=== PATIENT | male | born 1985 | race Hispanic/Latino ===

== ENCOUNTER 2018-12-30 08:55 | Inpatient (IN) | payer BC ==
[2018-12-30] MEDS ORDERED: ZOFRAN IV ONE (09:19)
[2018-12-30] MEDS ORDERED: ATIVAN ONE ×3 (09:19→15:08)
[2018-12-30] MEDS ORDERED: ATIVAN IV ONE (09:19)
[2018-12-30] MEDS ORDERED: MORPHINE IV ONE (09:19)
[2018-12-30 09:39] LABS: Basophils % (Auto) 0.4 % (0.0-1.8); Eosinophils # (Auto) 0.1 K/mm3 (0.0-0.4); Eosinophils % (Auto) 0.8 % (0.0-4.3); Hematocrit 40.5 % (35.5-45.6); Hemoglobin 14.3 gm/dl (11.8-15.2); Lymphocytes # (Auto) 0.6 K/mm3 (1.2-5.4); Lymphocytes % (Auto) 8.7 % (13.4-35.0); Mean Corpuscular HGB Conc 35 % (32-34); Mean Corpuscular Volume 101 fl (84-94); Monocytes # (Auto) 0.4 K/mm3 (0.0-0.8); Monocytes % (Auto) 5.6 % (0.0-7.3); Red Blood Count 4.01 M/mm3 (3.65-5.03); Red Cell Distribution Width 13.5 % (13.2-15.2)
[2018-12-30 09:45] LABS: Platelet Count 64 K/mm3 (140-440)
[2018-12-30 09:55] LABS: INR 1.27 (0.87-1.13)
[2018-12-30 09:57] LABS: BUN/Creatinine Ratio 8; Blood Urea Nitrogen 6 mg/dL (9-20); Calcium 8.8 mg/dL (8.4-10.2); Hemolysis Index 8
[2018-12-30 10:01] LABS: Albumin 4.2 g/dL (3.9-5); Bilirubin,Direct 2.5 mg/dL (0-0.2)
--- NOTE | 2018-12-30 10:13 | Cat Scan Report ---
CT HEAD WITHOUT CONTRAST: HISTORY: Trauma. TECHNIQUE: Sequential 2.5mm CT images. COMPARISON: none. FINDINGS: Cerebral Parenchyma: Within normal limits. Cerebellum: Within normal limits. Brainstem: Within normal limits. Ventricles: Normal. Sella: Normal. Extra-axial spaces: Normal. Basal Cisterns: Normal. Intracranial Hemorrhage: None. Midline Shift: None. Calvarium: Normal. There is mild soft tissue swelling in the right parietal region. Sinuses: Normal. Mastoid Air Cells: Normal. Visualized Orbits: Normal. IMPRESSION: Cranial CT scan within normal limits. Right parietal soft tissue swelling.
--- NOTE | 2018-12-30 10:15 | Cat Scan Report ---
CT FACIAL BONES WITHOUT CONTRAST: HISTORY: Trauma. TECHNIQUE: Helical CT images with sagittal and coronal CT reformations. FINDINGS: All paranasal sinuses are clear. No sinus wall fracture, fluid level or opacification. The orbital cavities are symmetric and intact. The mandible is intact. The skull base and upper cervical spine demonstrate no evidence for acute injury. IMPRESSION: Unremarkable CT of the facial bones.
--- NOTE | 2018-12-30 10:16 | Cat Scan Report ---
CT SCAN OF THE CERVICAL SPINE: HISTORY: Trauma. TECHNIQUE: Contiguous 1.25 mm axial images of the cervical spine were obtained. Sagittal and coronal reformatted images. FINDINGS: There is normal alignment of the cervical spine. The body, pedicles and posterior ligaments appear normal. No evidence of fracture or subluxation is seen. The spinal canal appears normal. The prevertebral soft tissues appear normal. IMPRESSION: Unremarkable CT of the cervical spine. No acute process is noted.
[2018-12-30] MEDS ORDERED: BENADRYL IV ONE (10:40)
[2018-12-30] MEDS ORDERED: DILAUDID IV ONE (10:40)
[2018-12-30] MEDS ORDERED: DILAUDID ONE (10:41)
[2018-12-30] MEDS ORDERED: BENADRYL ONE (10:41)
--- NOTE | 2018-12-30 11:46 | XRay Report ---
AP CHEST: HISTORY: Trauma AP view of the chest demonstrates a normal mediastinal and cardiac contour with clear lungs and normal bony and soft tissue structures. IMPRESSION: Unremarkable AP chest.
--- NOTE | 2018-12-30 11:46 | XRay Report ---
LUMBOSACRAL SPINE, 3 VIEWS: History: Trauma Findings: The vertebral bodies, disk spaces and posterior elements are intact. No compression deformity or malalignment. The SI joints are symmetric and unremarkable. Impression: 1. No evidence for acute injury to the lumbar spine.
--- NOTE | 2018-12-30 11:46 | XRay Report ---
LEFT SHOULDER: History: Trauma. Routine views demonstrate normal bony and soft tissue structures with normal joint alignment of the shoulder. IMPRESSION: Normal study.
--- NOTE | 2018-12-30 11:46 | XRay Report ---
THORACIC SPINE, 2 VIEWS: HISTORY: Trauma. Normal bone mineralization. No evidence for compression deformity, malalignment, or bone lesion. The posterior ribs are intact. The paraspinal soft tissues are within normal limits. IMPRESSION: Thoracic spine within normal limits.
[2018-12-30] MEDS ORDERED: ZOFRAN IV PRN (12:24)
[2018-12-30] MEDS ORDERED: SODIUM CHLORIDE FLUSH SYRINGE 10 ML IV PRN (12:24)
[2018-12-30] MEDS ORDERED: PROVENTIL IH PRN (12:24)
[2018-12-30] MEDS ORDERED: VITAMIN B-1 100 MG, FOLVITE 1 MG, INFUVITE 10 ML in NACL 0.9% 1000 ML 1,000 ML IV ONE (12:30)
--- NOTE | 2018-12-30 12:31 | Emergency Department Report ---
ED General Adult HPI - General Chief complaint: Multiple Trauma Stated complaint: SEIZURE/KNOT ON BACK OF HEAD Time Seen by Provider: 12/30/18 09:12 Source: patient Mode of arrival: Ambulatory Limitations: No Limitations - History of Present Illness Initial comments: This is a 30-year-old male who is brought to the emergency department via his workplace after a generalized seizure. He is able to state that he has been admitted to this facility for detox before. He has a prior diagnosis of delirium tremens. He has had alcohol withdrawal seizures in the past. I believe he also has a history of opioid habituation in the past as well. He states that he is decreased his use of alcohol recently. He arrives in the emergency department with significant tremor. He is provided IV Ativan. Patient complains of diffuse aching after his seizure. He also complained of mandibular pain. He did strike his occiput but had no prolonged loss of consciousness. He complains of discomfort in his neck and back lower back left shoulder. He is able to move all his extremities. He does not have any acute focal weakness. -: Sudden Location: head, neck, back, left, upper extremity Radiation: non-radiation Severity scale (0 -10): 4 Quality: aching Consistency: intermittent Improves with: none Worsens with: none Associated Symptoms: denies other symptoms - Related Data Previous Rx's Medication Instructions Recorded Last Taken Type Sertraline [Zoloft] 25 mg PO QDAY #30 tablet 06/27/18 Unknown Rx Thiamine [Vitamin B-1] 100 mg PO QDAY #30 tablet 06/27/18 Unknown Rx Allergies Allergy/AdvReac Type Severity Reaction Status Date / Time morphine AdvReac Vomiting Verified 12/30/18 09:18 ED Review of Systems ROS: Stated complaint: SEIZURE/KNOT ON BACK OF HEAD Other details as noted in HPI Constitutional: denies: chills, fever Eyes: denies: eye pain, eye discharge, vision change ENT: denies: ear pain, throat pain Respiratory: denies: cough, shortness of breath, wheezing Cardiovascular: denies: chest pain, palpitations Endocrine: no symptoms reported Gastrointestinal: denies: abdominal pain, nausea, diarrhea Genitourinary: denies: urgency, dysuria Musculoskeletal: as per HPI, back pain. denies: joint swelling, arthralgia Skin: denies: rash, lesions Neurological: denies: headache, weakness, paresthesias Psychiatric: anxiety, other. denies: depression Hematological/Lymphatic: denies: easy bleeding, easy bruising ED Past Medical Hx - Past Medical History Previous Medical History?: Yes Hx Congestive Heart Failure: No Hx Diabetes: No Hx Seizures: Yes Hx Asthma: No Hx COPD: No Hx HIV: No - Surgical History Past Surgical History?: Yes Additional Surgical History: Shoulder surgery - Social History Smoking Status: Unknown if ever smoked Substance Use Type: Other (opioids) - Medications Home Medications: Home Medications Medication Instructions Recorded Confirmed Last Taken Type Sertraline [Zoloft] 25 mg PO QDAY #30 tablet 06/27/18 12/30/18 Unknown Rx Thiamine [Vitamin B-1] 100 mg PO QDAY #30 tablet 06/27/18 12/30/18 Unknown Rx ED Physical Exam - General Limitations: No Limitations General appearance: in distress, other (tremulous) - Head Head exam: Present: atraumatic, normocephalic - Eye Eye exam: Present: normal appearance - ENT ENT exam: Present: mucous membranes moist, other (tongue fasciculations noted) - Neck Neck exam: Present: normal inspection, other (paravertebral no vertebral) - Respiratory Respiratory exam: Present: normal lung sounds bilaterally. Absent: respiratory distress - Cardiovascular Cardiovascular Exam: Present: regular rate, normal rhythm. Absent: systolic murmur, diastolic murmur, rubs, gallop - GI/Abdominal GI/Abdominal exam: Present: soft, normal bowel sounds. Absent: distended, tenderness, guarding, rebound, rigid - Rectal Rectal exam: Present: deferred - Extremities Exam Extremities exam: Present: normal inspection, other (tenderness to palpation of the left shoulder no gross deformity) - Back Exam Back exam: Present: normal inspection, paraspinal tenderness (somewhat diffuse upper and lower back). Absent: vertebral tenderness - Neurological Exam Neurological exam: Present: alert, oriented X3, CN II-XII intact. Absent: motor sensory deficit - Psychiatric Psychiatric exam: Present: normal affect, normal mood - Skin Skin exam: Present: warm, dry, intact, normal color. Absent: rash ED Course Vital Signs 12/30/18 12/30/18 12/30/18 09:12 09:16 09:21 Temperature 98.8 F Pulse Rate 117 H 109 H Respiratory 20 Rate Blood Pressure 126/72 Blood Pressure 123/76 [Right] O2 Sat by Pulse 93 93 95 Oximetry 12/30/18 12/30/18 12/30/18 09:25 09:30 09:32 Temperature Pulse Rate 107 H 107 H Respiratory 20 15 18 Rate Blood Pressure 127/67 Blood Pressure 127/67 [Right] O2 Sat by Pulse 91 95 Oximetry 12/30/18 12/30/18 12/30/18 09:48 10:00 10:15 Temperature Pulse Rate 107 H 89 82 Respiratory 14 15 13 Rate Blood Pressure 127/67 113/72 117/61 Blood Pressure [Right] O2 Sat by Pulse 94 92 94 Oximetry 12/30/18 12/30/18 12/30/18 10:30 10:45 11:00 Temperature Pulse Rate 88 95 H 96 H Respiratory 15 17 16 Rate Blood Pressure 122/72 132/91 122/95 Blood Pressure [Right] O2 Sat by Pulse 95 95 Oximetry 12/30/18 12/30/18 12/30/18 11:25 11:31 11:45 Temperature Pulse Rate 101 H 81 83 Respiratory 22 15 15 Rate Blood Pressure 122/95 122/95 122/95 Blood Pressure [Right] O2 Sat by Pulse 94 97 94 Oximetry 12/30/18 12/30/18 12:00 12:15 Temperature Pulse Rate 80 87 Respiratory 15 15 Rate Blood Pressure 122/95 122/95 Blood Pressure [Right] O2 Sat by Pulse 94 94 Oximetry ED Medical Decision Making - Lab Data Result diagrams: 12/30/18 09:19 12/30/18 09:19 Laboratory Results - last 24 hr 12/30/18 12/30/18 12/30/18 09:19 09:19 09:19 WBC 7.0 RBC 4.01 Hgb 14.3 Hct 40.5 MCV 101 H MCH 36 H MCHC 35 H RDW 13.5 Plt Count 64 L Lymph % (Auto) 8.7 L [place] % (Auto) 5.6 Eos % (Auto) 0.8 Baso % (Auto) 0.4 Lymph # 0.6 L [place] # 0.4 Eos # 0.1 Baso # 0.0 Seg Neutrophils % 84.5 H Seg Neutrophils # 5.9 PT 16.7 H INR 1.27 H APTT 31.0 Sodium Potassium Chloride Carbon Dioxide Anion Gap BUN Creatinine Estimated GFR BUN/Creatinine Ratio Glucose Calcium Magnesium Total Bilirubin Direct Bilirubin Indirect Bilirubin AST ALT Alkaline Phosphatase Ammonia Total Protein Albumin Albumin/Globulin Ratio Lipase Plasma/Serum Alcohol Blood Type O POSITIVE Antibody Screen Negative 12/30/18 12/30/18 12/30/18 09:19 09:19 09:19 WBC RBC Hgb Hct MCV MCH MCHC RDW Plt Count Lymph % (Auto) [place] % (Auto) Eos % (Auto) Baso % (Auto) Lymph # [place] # Eos # Baso # Seg Neutrophils % Seg Neutrophils # PT INR APTT Sodium 135 L Potassium 3.3 L Chloride 93.6 L Carbon Dioxide 24 Anion Gap 21 BUN 6 L Creatinine 0.8 Estimated GFR > 60 BUN/Creatinine Ratio 8 Glucose 118 H Calcium 8.8 Magnesium 1.40 L Total Bilirubin 4.40 H Direct Bilirubin 2.5 H Indirect Bilirubin 1.9 AST 260 H ALT 146 H Alkaline Phosphatase 113 Ammonia 105.0 H Total Protein 6.9 Albumin 4.2 Albumin/Globulin Ratio 1.6 Lipase 26 Plasma/Serum Alcohol Blood Type Antibody Screen 12/30/18 09:19 WBC RBC Hgb Hct MCV MCH MCHC RDW Plt Count Lymph % (Auto) [place] % (Auto) Eos % (Auto) Baso % (Auto) Lymph # [place] # Eos # Baso # Seg Neutrophils % Seg Neutrophils # PT INR APTT Sodium Potassium Chloride Carbon Dioxide Anion Gap BUN Creatinine Estimated GFR BUN/Creatinine Ratio Glucose Calcium Magnesium Total Bilirubin Direct Bilirubin Indirect Bilirubin AST ALT Alkaline Phosphatase Ammonia Total Protein Albumin Albumin/Globulin Ratio Lipase Plasma/Serum Alcohol < 0.01 Blood Type Antibody Screen - EKG Data -: EKG Interpreted by Mn EKG shows normal: sinus rhythm, axis, intervals, QRS complexes, ST-T waves Rate: normal - EKG Data Interpretation: no acute changes - Radiology Data Radiology results: report reviewed The entire series of x-rays and CT examinations showed nothing acute Critical Care Time: Yes Critical care time in (mins) excluding proc time.: 45 Critical care attestation.: If time is entered above; I have spent that time in minutes in the direct care of this critically ill patient, excluding procedure time. ED Disposition Clinical Impression: Hypokalemia, Hypomagnesemia, Hepatic encephalopathy Alcohol withdrawal Qualifiers: Complication of substance-induced condition: with perceptual disturbance Niraj lified Code(s): F10.232 - Alcohol dependence with withdrawal with perceptual disturbance Liver failure with hepatic coma Qualifiers: Liver failure chronicity: subacute Qualified Code(s): K72.01 - Acute and subac rahul hepatic failure with coma Disposition: DC-09 OP ADMIT IP TO THIS HOSP Is pt being admited?: Yes Does the pt Need Aspirin: Yes Condition: Stable Referrals: PRIMARY CARE, [Primary Care Provider] - 3-5 Days
[2018-12-30] MEDS ORDERED: MAGNESIUM SULFATE 2GM/50ML 2 GM/50 ML BAG IV ONE ×2 (12:34→14:48)
[2018-12-30] MEDS: ATIVAN IV PRN ×6 (12:34→22:45)
[2018-12-30] MEDS ORDERED: BABY ASPIRIN PO ONE ×2 (12:39→17:00)
[2018-12-30] MEDS: TYLENOL PO PRN ×2 (13:15→21:01)
[2018-12-30 13:55] LABS: Bilirubin,Urine NEG (Negative); Blood,Urine NEG (Negative); Color,Urine Amber (Yellow); Protein,Urine <15 mg/dL mg/dL (Negative)
[2018-12-30 14:09] LABS: Amphetamine Screen,Urine PRESUMPTIVE NEGATIVE; Benzodiazepines Screen,Urine PRESUMPTIVE NEGATIVE; Cannabinoid Screen,Urine PRESUMPTIVE NEGATIVE; Cocaine Screen,Urine PRESUMPTIVE NEGATIVE; Methadone Screen,Urine PRESUMPTIVE NEGATIVE; Opiate Screen,Urine PRESUMPTIVE NEGATIVE
--- NOTE | 2018-12-30 17:43 | History and Physical Report ---
History of Present Illness Date of admission: 12/30/18 13:23 Chief complaint: confused History of present illness: 33 YO Male with ETOH Dependence/Opioid Dependence presents to ED for evaluation. Pt is confused and unable to provide detailed history at time of exam. Pt history taken from medical record and ED staff. Staff reports that patient has decreased his use of ETOH over the past 3 days. Pt was at work today and experienced a generalized seizure. Pt also fell from a standing position and struck his head on the floor. Pt transported to ED via private vehicle. Pt seen and evaluated in ED and found to have Encephalopathy, ETOH Withdrawl complicated by Delirium, Liver Failure secondary to ETOH dependence, and Seizures. Pt admitted to medical floor and initiated on CIWA protocol. No further history obtainable. Pt is confused, lethargic and tremulous at time of exam. Pt has positive gag reflex, and is able to protect his airway. Past History Past Medical History: other (ETOH Dependence,Anxiety) Past Surgical History: No surgical history, Other (reviewed) Social history: alcohol abuse Family history: no significant family history (reviewed) Medications and Allergies Allergies Allergy/AdvReac Type Severity Reaction Status Date / Time morphine AdvReac Vomiting Verified 12/30/18 09:18 Home Medications Medication Instructions Recorded Confirmed Last Taken Type Sertraline [Zoloft] 25 mg PO QDAY #30 tablet 06/27/18 12/30/18 Unknown Rx Thiamine [Vitamin B-1] 100 mg PO QDAY #30 tablet 06/27/18 12/30/18 Unknown Rx Active Meds: Active Medications Acetaminophen (Tylenol) 650 mg PO Q4H PRN PRN Reason: Pain MILD(1-3)/Fever >100.5/PONCE Last Admin: 12/30/18 13:15 Dose: 650 mg Documented by: Albuterol (Proventil) 2.5 mg IH Q4HRT PRN PRN Reason: Shortness Of Breath Famotidine (Pepcid) 10 mg PO BID [facility] Folic Acid (Folvite) 1 mg PO QDAY [facility] Lorazepam (Ativan) 2 mg IV Q1HR PRN PRN Reason: CIWA-Ar 8-15 Last Admin: 12/30/18 16:44 Dose: 2 mg Documented by: Multivitamins (Theragran Tab) 1 each PO QDAY [facility] Ondansetron HCl (Zofran) 4 mg IV Q8H PRN PRN Reason: Nausea And Vomiting Sertraline HCl (Zoloft) 25 mg PO QDAY [facility] Sodium Chloride (Sodium Chloride Flush Syringe 10 Ml) 10 ml IV BID [facility] Sodium Chloride (Sodium Chloride Flush Syringe 10 Ml) 10 ml IV PRN PRN PRN Reason: LINE FLUSH Thiamine HCl (Vitamin B-1) 100 mg PO QDAY [facility] Review of Systems ROS unobtainable: due to mental status Exam - Constitutional Vitals: Temp Pulse Resp BP Pulse Ox 97.7 F 109 H 16 137/92 98 12/30/18 16:39 12/30/18 16:39 12/30/18 15:54 12/30/18 15:57 12/30/18 16:39 General appearance: Present: mild distress, obese, disheveled - EENT Eyes: Present: PERRL, miosis ENT: hearing intact, clear oral mucosa - Neck Neck: Present: supple, normal ROM - Respiratory Respiratory effort: normal Respiratory: bilateral: CTA - Cardiovascular Heart Sounds: Present: S1 & S2. Absent: rub, click - Extremities Extremities: pulses symmetrical, No edema Peripheral Pulses: within normal limits - Abdominal General gastrointestinal: Present: soft, non-tender, non-distended, normal bowel sounds Male genitourinary: Present: normal - Integumentary Integumentary: Present: clear, warm, dry - Musculoskeletal Musculoskeletal: gait normal, strength equal bilaterally - Psychiatric Psychiatric: appropriate mood/affect, intact judgment & insight - Neurologic Neurologic: CNII-XII intact, moves all extremities Results - Labs CBC & Chem 7: 12/30/18 09:19 12/30/18 09:19 Labs: Abnormal lab results 12/30/18 12/30/18 12/30/18 Range/Units 09:19 09:19 09:19 MCV 101 H (84-94) fl MCH 36 H (28-32) pg MCHC 35 H (32-34) % Plt Count 64 L (140-440) K/mm3 Lymph % (Auto) 8.7 L (13.4-35.0) % Lymph # 0.6 L (1.2-5.4) K/mm3 Seg Neutrophils % 84.5 H (40.0-70.0) % PT 16.7 H (12.2-14.9) Sec. INR 1.27 H (0.87-1.13) Sodium 135 L (137-145) mmol/L Potassium 3.3 L (3.6-5.0) mmol/L Chloride 93.6 L (98-107) mmol/L BUN 6 L (9-20) mg/dL Glucose 118 H (75-100) mg/dL Phosphorus (2.5-4.5) mg/dL Magnesium (1.7-2.3) mg/dL Total Bilirubin (0.1-1.2) mg/dL Direct Bilirubin (0-0.2) mg/dL AST (5-40) units/L ALT (7-56) units/L Ammonia (25-60) umol/L 12/30/18 12/30/18 12/30/18 Range/Units 09:19 09:19 09:19 MCV (84-94) fl MCH (28-32) pg MCHC (32-34) % Plt Count (140-440) K/mm3 Lymph % (Auto) (13.4-35.0) % Lymph # (1.2-5.4) K/mm3 Seg Neutrophils % (40.0-70.0) % PT (12.2-14.9) Sec. INR (0.87-1.13) Sodium (137-145) mmol/L Potassium (3.6-5.0) mmol/L Chloride (98-107) mmol/L BUN (9-20) mg/dL Glucose (75-100) mg/dL Phosphorus 1.60 L (2.5-4.5) mg/dL Magnesium 1.40 L 1.50 L (1.7-2.3) mg/dL Total Bilirubin 4.40 H (0.1-1.2) mg/dL Direct Bilirubin 2.5 H (0-0.2) mg/dL AST 260 H (5-40) units/L ALT 146 H (7-56) units/L Ammonia 105.0 H (25-60) umol/L Assessment and Plan - Patient Problems (1) Encephalopathy Current Visit: Yes Status: Acute Plan to address problem: CT head, neuro checks, aspiration precautions, seizure precautions, supportive care. (2) Alcohol withdrawal Current Visit: Yes Status: Acute Qualifiers: Complication of substance-induced condition: with delirium Qualified Code(s): F10.231 - Alcohol dependence with withdrawal delirium Plan to address problem: IVF resuscitation therapy, CIWA protocol, Ativan PRN, Banana bag, blood alcohol, suupportive care, antiemetic therapy (3) Liver failure with hepatic coma Current Visit: Yes Status: Acute Qualifiers: Liver failure chronicity: subacute Qualified Code(s): K72.01 - Acute and subacute hepatic failure with coma Plan to address problem: LFT, lactulose, ammonia level, repeat ammonia level in AM, CT head (4) Delirium tremens Current Visit: No Status: Acute Plan to address problem: CT Head, neuro checks, ativan prn, CIWA protocol, (5) Traumatic hematoma of forehead Current Visit: No Status: Acute Qualifiers: Encounter type: initial encounter Qualified Code(s): S00.83XA - Contusion of other part of head, initial encounter Plan to address problem: CT head, trauma panel, NSAID therapy, supportive care. (6) DVT prophylaxis Current Visit: Yes Status: Acute Plan to address problem: SCD to BLE while in bed, Hold anticoagulation at this time due to liver disease.
[2018-12-30] MEDS ORDERED: CEPHULAC PR PRN (18:06)
[2018-12-30] MEDS: PEPCID PO SCH (21:02)
[2018-12-30] MEDS: SODIUM CHLORIDE FLUSH SYRINGE 10 ML IV SCH (21:03)
[2018-12-31] MEDS: ATIVAN IV PRN ×7 (01:01→23:14)
[2018-12-31 06:49] LABS: BUN/Creatinine Ratio 10; Blood Urea Nitrogen 5 mg/dL (9-20); Calcium 8.8 mg/dL (8.4-10.2); Hemolysis Index 8
[2018-12-31] MEDS: SODIUM CHLORIDE FLUSH SYRINGE 10 ML IV SCH ×2 (09:43→22:28)
[2018-12-31] MEDS: PEPCID PO SCH ×2 (09:43→22:27)
[2018-12-31] MEDS: VITAMIN B-1 PO SCH (09:43)
[2018-12-31] MEDS: FOLVITE PO SCH (09:43)
[2018-12-31] MEDS: THERAGRAN Tab PO SCH (09:43)
--- NOTE | 2018-12-31 12:47 | Consultation ---
History of Present Illness - Reason for Consult Consult date: 12/31/18 Reason for consult: Mental Health Evaluation Requesting physician: LAUREL MANN - Chief Complaint Chief complaint: "I will get help" - History of Present Psychiatric Illness 33 y.o. white male who presented to the ER for seizure activity. Psychiatry was consulted to see the patient for ETOH. Today the patient is calm and cooperative during t he assessment. He stated that he h as a hx of alcohol abuse since he age of 14. He stated that he drink (etoh) because he enjoys it. He stated that he have been to rehab, but relapsed a year later. He stated that he was dx with depression and take Zoloft. He stated that he felt hopeless and helpless about his alcoholism, so his PCP prescribed him a antidepressant. He stated that his therapist is assisting him with locating rehab services in his local area. He stated that daily rehab services maybe hard, because he's required to work 5 days a week. He denies SI/HI's and AVH's. He denies erratic sleep and a poor appetite. He denies recreational drug use. Medications and Allergies Allergies Allergy/AdvReac Type Severity Reaction Status Date / Time morphine AdvReac Vomiting Verified 12/30/18 09:18 Home Medications Medication Instructions Recorded Confirmed Last Taken Type Sertraline [Zoloft] 25 mg PO QDAY #30 tablet 06/27/18 12/30/18 Unknown Rx Thiamine [Vitamin B-1] 100 mg PO QDAY #30 tablet 06/27/18 12/30/18 Unknown Rx Active Meds: Active Medications Acetaminophen (Tylenol) 650 mg PO Q4H PRN PRN Reason: Pain MILD(1-3)/Fever >100.5/PONCE Last Admin: 12/30/18 21:01 Dose: 650 mg Documented by: Albuterol (Proventil) 2.5 mg IH Q4HRT PRN PRN Reason: Shortness Of Breath Famotidine (Pepcid) 10 mg PO BID [facility] Last Admin: 12/31/18 09:43 Dose: 10 mg Documented by: Folic Acid (Folvite) 1 mg PO QDAY [facility] Last Admin: 12/31/18 09:43 Dose: 1 mg Documented by: Lactulose (Cephulac) 200 gm [place] ONCE PRN PRN Reason: Encephalopathy Last Admin: 12/30/18 22:46 Dose: 200 gm Documented by: Lorazepam (Ativan) 2 mg IV Q1HR PRN PRN Reason: Vel 8-15 Last Admin: 12/31/18 10:12 Dose: 2 mg Documented by: Lorazepam (Ativan) 4 mg IV Q1H PRN PRN Reason: Vel 16-25 Last Admin: 12/31/18 01:01 Dose: 4 mg Documented by: Multivitamins (Theragran Tab) 1 each PO QDAY [facility] Last Admin: 12/31/18 09:43 Dose: 1 each Documented by: Ondansetron HCl (Zofran) 4 mg IV Q8H PRN PRN Reason: Nausea And Vomiting Sertraline HCl (Zoloft) 25 mg PO QDAY [facility] Sodium Chloride (Sodium Chloride Flush Syringe 10 Ml) 10 ml IV BID [facility] Last Admin: 12/31/18 09:43 Dose: 10 ml Documented by: Sodium Chloride (Sodium Chloride Flush Syringe 10 Ml) 10 ml IV PRN PRN PRN Reason: LINE FLUSH Thiamine HCl (Vitamin B-1) 100 mg PO QDAY [facility] Last Admin: 12/31/18 09:43 Dose: 100 mg Documented by: Past psychiatric history - Past Medical History Past Medical History: No medical history Past Surgical History: No surgical history - past Psychiatric treatment and history psychiatric treatment history: Rehab services in the past for ETOH. Fam hx of alcohol abuse. - Social History Social history: lives with family Mental Status Exam - Vital signs Last Vital Signs Temp 98.4 F 12/31/18 05:53 Pulse 105 H 12/31/18 05:53 Resp 24 12/31/18 05:53 BP 142/93 12/31/18 05:53 Pulse Ox 96 12/31/18 05:53 - Exam Narrative exam: MSE: Appearance: calm, cooperative Behavior: regular eye contact Speech: regular rate and tone Mood: "okay" Affect: congruent to mood Thought Process: linear Thought Content: denies SI/HI's and AVH's Motor Activity: sitting up in bed Cognition: A/O x 3 Insight: appropriate Judgment: appropriate Results Result Diagrams: 12/30/18 09:19 12/31/18 06:01 Abnormal lab results 12/30/18 12/31/18 Range/Units 09:19 06:01 Sodium 136 L (137-145) mmol/L Potassium 3.4 L (3.6-5.0) mmol/L BUN 5 L (9-20) mg/dL Creatinine 0.5 L (0.8-1.5) mg/dL Phosphorus 1.60 L (2.5-4.5) mg/dL Magnesium 1.50 L (1.7-2.3) mg/dL All other labs normal. Assessment and Plan Assessment and plan: Impression: Alcohol Use DO. hx of Depression. Today the patient is calm and cooperative during the assessment. Recommendation/Plan: Continue Zoloft 25 mg PO daily for depression. Discussed possible suicidality/medication induced melanie with the patient reference Zoloft, he verbalized understanding. Continue CIWA. Psy sign off. Sispo: The patient can follow up with [facility] for outpatient psy/rehab services. Will staff with Dr Donita Ochoa.
[2018-12-31] MEDS: ZOLOFT PO SCH (13:47)
--- NOTE | 2018-12-31 16:47 | Progress Note ---
Assessment and Plan Assessment and plan: (1) Encephalopathy Current Visit: Yes Status: Acute Plan to address problem: CT head, neuro checks, aspiration precautions, seizure precautions, supportive care. (2) Alcohol withdrawal Current Visit: Yes Status: Acute Qualifiers: Complication of substance-induced condition: with delirium Qualified Code(s): F10.231 - Alcohol dependence with withdrawal delirium Plan to address problem: IVF resuscitation therapy, CIWA protocol, Ativan PRN, Banana bag, blood alcohol, suupportive care, antiemetic therapy (3) Liver failure with hepatic coma Current Visit: Yes Status: Acute Qualifiers: Liver failure chronicity: subacute Qualified Code(s): K72.01 - Acute and subacute hepatic failure with coma Plan to address problem: LFT, lactulose, ammonia level, repeat ammonia level in AM, CT head (4) Delirium tremens Current Visit: No Status: Acute Plan to address problem: CT Head, neuro checks, ativan prn, CIWA protocol, (5) Traumatic hematoma of forehead Current Visit: No Status: Acute Qualifiers: Encounter type: initial encounter Qualified Code(s): S00.83XA - Contusion of other part of head, initial encounter Plan to address problem: CT head, trauma panel, NSAID therapy, supportive care. (6) DVT prophylaxis Current Visit: Yes Status: Acute Plan to address problem: SCD to BLE while in bed, Hold anticoagulation at this time due to liver disease. History Interval history: Patient was seen and evaluated this morning, patient was alert and oriented. No seizure episode overnight. Patient is still tachycardic. Hospitalist Physical - Physical exam Narrative exam: Not in cardiopulmonary distress. The patient appeared well nourished and normally developed. Vital signs as documented. Head exam is unremarkable. No scleral icterus . Neck is without jugular venous distension, thyromegaly, or carotid bruits. Lungs are clear to auscultation. Cardiac exam reveals regular rate and Rhythm. Abdominal exam reveals normal bowel sounds, no masses, no organomegaly and no aortic enlargement. Extremities are nonedematous and both femoral and pedal pulses are normal. PATTERN DUPLICATOR: Alert and oriented 3. No focal weakness. - Constitutional Vitals: Temp Pulse Resp BP Pulse Ox 98.1 F 104 H 18 151/98 96 12/31/18 12:33 12/31/18 12:33 12/31/18 12:33 12/31/18 12:33 12/31/18 12:33 General appearance: Present: mild distress, obese, disheveled Results - Labs CBC & Chem 7: 12/30/18 09:19 12/31/18 06:01 Labs: Laboratory Last Values WBC 7.0 K/mm3 (4.5-11.0) 12/30/18 09: RBC 4.01 M/mm3 (3.65-5.03) 12/30/18 09:19 Hgb 14.3 gm/dl (11.8-15.2) 12/30/18 09:19 Hct 40.5 % (35.5-45.6) 12/30/18 09:19 MCV 101 fl (84-94) H 12/30/18 09:19 MCH 36 pg (28-32) H 12/30/18 09: MCHC 35 % (32-34) H 12/30/18 09:19 RDW 13.5 % (13.2-15.2) 12/30/18 09:19 Plt Count 64 K/mm3 (140-440) L 12/30/18 09:19 Lymph % (Auto) 8.7 % (13.4-35.0) L 12/30/18 09:19 [place] % (Auto) 5.6 % (0.0-7.3) 12/30/18 09:19 Eos % (Auto) 0.8 % (0.0-4.3) 12/30/18 09: Baso % (Auto) 0.4 % (0.0-1.8) 12/30/18 09:19 Lymph # 0.6 K/mm3 (1.2-5.4) L 12/30/18 09:19 [place] # 0.4 K/mm3 (0.0-0.8) 12/30/18 09:19 Eos # 0.1 K/mm3 (0.0-0.4) 12/30/18 09: Baso # 0.0 K/mm3 (0.0-0.1) 12/30/18 09:19 Seg Neutrophils % 84.5 % (40.0-70.0) H 12/30/18 09:19 Seg Neutrophils # 5.9 K/mm3 (1.8-7.7) 12/30/18 09:19 PT 16.7 Sec. (12.2-14.9) H 12/30/18 09:19 INR 1.27 (0.87-1.13) H 12/30/18 09:19 APTT 31.0 Sec. (24.2-36.6) 12/30/18 09:19 Sodium 136 mmol/L (137-145) L 12/31/18 06:01 Potassium 3.4 mmol/L (3.6-5.0) L 12/31/18 06:01 Chloride 98.6 mmol/L (98-107) 12/31/18 06:01 Carbon Dioxide 26 mmol/L (22-30) 12/31/18 06:01 15 mmol/L 12/31/18 06:01 BUN 5 mg/dL (9-20) L 12/31/18 06:01 0.5 mg/dL (0.8-1.5) L 12/31/18 06:01 Estimated GFR > 60 ml/min 12/31/18 06:01 10 % 12/31/18 06:01 Glucose 85 mg/dL (75-100) 12/31/18 06:01 Calcium 8.8 mg/dL (8.4-10.2) 12/31/18 06:01 Phosphorus 1.60 mg/dL (2.5-4.5) L 12/30/18 09:19 Magnesium 1.40 mg/dL (1.7-2.3) L 12/30/18 09:19 Magnesium 1.50 mg/dL (1.7-2.3) L 12/30/18 09:19 4.40 mg/dL (0.1-1.2) H 12/30/18 09:19 2.5 mg/dL (0-0.2) H 12/30/18 09:19 1.9 mg/dL 12/30/18 09:19 AST 260 units/L (5-40) H 12/30/18 09:19 ALT 146 units/L (7-56) H 12/30/18 09:19 113 units/L (35-129) 12/30/18 09:19 59.0 umol/L (25-60) 12/31/18 06:01 6.9 g/dL (6.3-8.2) 12/30/18 09: 4.2 g/dL (3.9-5) 12/30/18 09:19 1.6 % 12/30/18 09:19 26 units/L (13-60) 12/30/18 09:19 [place] (Yellow) 12/30/18 13:30 Clear (Clear) 12/30/18 13:30 7.0 (5.0-7.0) 12/30/18 13:30 Ur Specific [place] 1.008 (1.003-1.030) 12/30/18 13:30 <15 mg/dl mg/dL (Negative) 12/30/18 13:30 Neg mg/dL (Negative) 12/30/18 13:30 Neg mg/dL (Negative) 12/30/18 13:30 Neg (Negative) 12/30/18 13:30 Neg (Negative) 12/30/18 13:30 Neg (Negative) 12/30/18 13:30 4.0 mg/dL (<2.0) 12/30/18 13:30 Ur Leukocyte Esterase Neg (Negative) 12/30/18 13:30 6.0 /HPF (0.0-6.0) 12/30/18 13:30 1.0 /HPF (0.0-6.0) 12/30/18 13:30 Presumptive negative 12/30/18 13:30 Presumptive negative 12/30/18 13:30 Ur Barbiturates Screen Presumptive negative 12/30/18 13:30 Ur Phencyclidine Scrn Presumptive negative 12/30/18 13:30 Ur Amphetamines Screen Presumptive negative 12/30/18 13:30 U Benzodiazepines Scrn Presumptive negative 12/30/18 13:30 Presumptive negative 12/30/18 13:30 U Marijuana (THC) Screen Presumptive negative 12/30/18 13:30 Disclamer 12/30/18 13:30 Plasma/Serum Alcohol < 0.01 % (0-0.07) 12/30/18 09:19 Blood Type O POSITIVE 12/30/18 09:19 Antibody Screen Negative 12/30/18 09:19 Active Medications - Current Medications Current Medications: Generic Name Dose Route Start Last Admin Trade Name Freq PRN Reason Stop Dose Admin Acetaminophen 650 mg 12/30/18 12:24 12/30/18 21:01 Tylenol PO 650 mg Q4H PRN Administration Pain MILD(1-3)/Fever >100.5/PONCE Albuterol 2.5 mg 12/30/18 12:24 Proventil IH Q4HRT PRN Shortness Of Breath Famotidine 10 mg 12/30/18 22:00 12/31/18 09:43 Pepcid PO 10 mg BID MYNOR Administration Folic Acid 1 mg 12/31/18 10:00 12/31/18 09:43 Folvite PO 1 mg QDAY MYNOR Administration Lactulose 200 gm 12/30/18 18:06 12/30/18 22:46 Cephulac IN 200 gm ONCE PRN Administration Encephalopathy Lorazepam 2 mg 12/30/18 12:29 12/31/18 13:47 Ativan IV 2 mg Q1HR PRN Administration CIWA-Ar 8-15 Lorazepam 4 mg 12/31/18 00:33 12/31/18 01:01 Ativan IV 4 mg Q1H PRN Administration CIWA-Ar 16-25 Multivitamins 1 each 12/31/18 10:00 12/31/18 09:43 Theragran Tab PO 1 each QDAY MYNOR Administration Ondansetron HCl 4 mg 12/30/18 12:24 Zofran IV Q8H PRN Nausea And Vomiting Sertraline HCl 25 mg 12/31/18 10:00 12/31/18 13:47 Zoloft PO 25 mg QDAY MYNOR Administration Sodium Chloride 10 ml 12/30/18 22:00 12/31/18 09:43 Sodium Chloride Flush Syringe 10 Ml IV 10 ml BID MYNOR Administration Sodium Chloride 10 ml 12/30/18 12:24 Sodium Chloride Flush Syringe 10 Ml IV PRN PRN LINE FLUSH Thiamine HCl 100 mg 12/31/18 10:00 12/31/18 09:43 Vitamin B-1 PO 100 mg QDAY MYNOR Administration
[2018-12-31] MEDS ORDERED: K-DUR PO ONE (17:00)
[2018-12-31] MEDS: IBUPROFEN PO PRN (17:03)
[2019-01-01] MEDS: ATIVAN IV PRN ×4 (01:13→13:56)
[2019-01-01 09:24] LABS: Alanine Aminotransferase 109 units/L (7-56); BUN/Creatinine Ratio 14; Blood Urea Nitrogen 7 mg/dL (9-20); Calcium 8.9 mg/dL (8.4-10.2); Hemolysis Index 7
[2019-01-01] MEDS ORDERED: GEODON IM PRN ×3 (09:50→20:00)
[2019-01-01] MEDS: IBUPROFEN PO PRN ×2 (11:01→21:42)
[2019-01-01] MEDS: VITAMIN B-1 PO SCH (11:02)
[2019-01-01] MEDS: THERAGRAN Tab PO SCH (11:02)
[2019-01-01] MEDS: FOLVITE PO SCH (11:02)
[2019-01-01] MEDS: PEPCID PO SCH ×2 (11:02→21:43)
[2019-01-01] MEDS: SODIUM CHLORIDE FLUSH SYRINGE 10 ML IV SCH ×2 (11:02→21:43)
[2019-01-01] MEDS: ZOLOFT PO SCH (11:08)
--- NOTE | 2019-01-01 15:22 | Progress Note ---
Assessment and Plan Assessment and plan: (1) Encephalopathy - Patient is agitated overnight - On restraints - Continue Geodon (2) Alcohol withdrawal - Continue with CIWA protocol (3) Liver failure with hepatic coma - Improving (4) Delirium tremens - Continue CIWA protocol (5) Traumatic hematoma of forehead - CT head normal (6) DVT prophylaxis - SCDs because of the liver problems History Interval history: Patient was seen and evaluated this morning, patient was agitated overnight and he is on restraints. Patient didn't have any seizure activity. Hospitalist Physical - Physical exam Narrative exam: Not in cardiopulmonary distress. The patient appeared well nourished and normally developed. Vital signs as documented. Head exam is unremarkable. No scleral icterus . Neck is without jugular venous distension, thyromegaly, or carotid bruits. Lungs are clear to auscultation. Cardiac exam reveals regular rate and Rhythm. Abdominal exam reveals normal bowel sounds, no masses, no organomegaly and no aortic enlargement. Extremities are nonedematous and both femoral and pedal pulses are normal. MANAGER GOLF: Alert and oriented 3. No focal weakness. - Constitutional Vitals: Temp Pulse Resp BP Pulse Ox 97.9 F 122 H 20 158/110 97 01/01/19 04:37 01/01/19 04:37 01/01/19 04:37 01/01/19 04:37 01/01/19 04:37 General appearance: Present: mild distress, obese, disheveled Results - Labs CBC & Chem 7: 12/30/18 09:19 01/01/19 08:10 Labs: Laboratory Last Values WBC 7.0 K/mm3 (4.5-11.0) 12/30/18 09:19 RBC 4.01 M/mm3 (3.65-5.03) 12/30/18 09:19 Hgb 14.3 gm/dl (11.8-15.2) 12/30/18 09:19 Hct 40.5 % (35.5-45.6) 12/30/18 09:19 MCV 101 fl (84-94) H 12/30/18 09:19 MCH 36 pg (28-32) H 12/30/18 09:19 MCHC 35 % (32-34) H 12/30/18 09:19 RDW 13.5 % (13.2-15.2) 12/30/18 09:19 Plt Count 64 K/mm3 (140-440) L 12/30/18 09:19 Lymph % (Auto) 8.7 % (13.4-35.0) L 12/30/18 09:19 [place] % (Auto) 5.6 % (0.0-7.3) 12/30/18 09:19 Eos % (Auto) 0.8 % (0.0-4.3) 12/30/18 09:19 Baso % (Auto) 0.4 % (0.0-1.8) 12/30/18 09:19 Lymph # 0.6 K/mm3 (1.2-5.4) L 12/30/18 09:19 [place] # 0.4 K/mm3 (0.0-0.8) 12/30/18 09:19 Eos # 0.1 K/mm3 (0.0-0.4) 12/30/18 09: Baso # 0.0 K/mm3 (0.0-0.1) 12/30/18 09:19 Seg Neutrophils % 84.5 % (40.0-70.0) H 12/30/18 09:19 Seg Neutrophils # 5.9 K/mm3 (1.8-7.7) 12/30/18 09:19 PT 16.7 Sec. (12.2-14.9) H 12/30/18 09:19 INR 1.27 (0.87-1.13) H 12/30/18 09:19 APTT 31.0 Sec. (24.2-36.6) 12/30/18 09:19 Sodium 138 mmol/L (137-145) 01/01/19 08:10 Potassium 3.6 mmol/L (3.6-5.0) 01/01/19 08:10 Chloride 100.5 mmol/L (98-107) 01/01/19 08:10 Carbon Dioxide 21 mmol/L (22-30) L 01/01/19 08:10 20 mmol/L 01/01/19 08:10 BUN 7 mg/dL (9-20) L 01/01/19 08:10 0.5 mg/dL (0.8-1.5) L 01/01/19 08:10 Estimated GFR > 60 ml/min 01/01/19 08:10 14 % 01/01/19 08:10 Glucose 92 mg/dL (75-100) 01/01/19 08:10 Calcium 8.9 mg/dL (8.4-10.2) 01/01/19 08:10 Phosphorus 1.60 mg/dL (2.5-4.5) L 12/30/18 09:19 Magnesium 1.40 mg/dL (1.7-2.3) L 12/30/18 09:19 Magnesium 1.50 mg/dL (1.7-2.3) L 12/30/18 09:19 2.70 mg/dL (0.1-1.2) H 01/01/19 08:10 2.5 mg/dL (0-0.2) H 12/30/18 09:19 1.9 mg/dL 12/30/18 09:19 AST 177 units/L (5-40) H 01/01/19 08:10 ALT 109 units/L (7-56) H 01/01/19 08:10 111 units/L (35-129) 01/01/19 08:10 59.0 umol/L (25-60) 12/31/18 06:01 7.1 g/dL (6.3-8.2) 01/01/19 08:10 4.0 g/dL (3.9-5) 01/01/19 08:10 1.3 % 01/01/19 08:10 26 units/L (13-60) 12/30/18 09:19 [place] (Yellow) 12/30/18 13:30 Clear (Clear) 12/30/18 13:30 7.0 (5.0-7.0) 12/30/18 13:30 Ur Specific [place] 1.008 (1.003-1.030) 12/30/18 13:30 <15 mg/dl mg/dL (Negative) 12/30/18 13:30 Neg mg/dL (Negative) 12/30/18 13:30 Neg mg/dL (Negative) 12/30/18 13:30 Neg (Negative) 12/30/18 13:30 Neg (Negative) 12/30/18 13:30 Neg (Negative) 12/30/18 13:30 4.0 mg/dL (<2.0) 12/30/18 13:30 Ur Leukocyte Esterase Neg (Negative) 12/30/18 13:30 6.0 /HPF (0.0-6.0) 12/30/18 13:30 1.0 /HPF (0.0-6.0) 12/30/18 13:30 Presumptive negative 12/30/18 13:30 Presumptive negative 12/30/18 13:30 Ur Barbiturates Screen Presumptive negative 12/30/18 13:30 Ur Phencyclidine Scrn Presumptive negative 12/30/18 13:30 Ur Amphetamines Screen Presumptive negative 12/30/18 13:30 U Benzodiazepines Scrn Presumptive negative 12/30/18 13:30 Presumptive negative 12/30/18 13:30 U Marijuana (THC) Screen Presumptive negative 12/30/18 13:30 Disclamer 12/30/18 13:30 Plasma/Serum Alcohol < 0.01 % (0-0.07) 12/30/18 09:19 Blood Type O POSITIVE 12/30/18 09:19 Antibody Screen Negative 12/30/18 09:19 Active Medications - Current Medications Current Medications: Generic Name Dose Route Start Last Admin Trade Name Freq PRN Reason Stop Dose Admin Acetaminophen 650 mg 12/30/18 12:24 12/30/18 21:01 Tylenol PO 650 mg Q4H PRN Administration Pain MILD(1-3)/Fever >100.5/PONCE Albuterol 2.5 mg 12/30/18 12:24 Proventil IH Q4HRT PRN Shortness Of Breath Famotidine 10 mg 12/30/18 22:00 01/01/19 11:02 Pepcid PO 10 mg BID MYNOR Administration Folic Acid 1 mg 12/31/18 10:00 01/01/19 11:02 Folvite PO 1 mg QDAY MYNOR Administration Ibuprofen 400 mg 12/31/18 16:43 01/01/19 11:01 Motrin PO 400 mg TID PRN Administration Pain, Mild (1-3) Lactulose 200 gm 12/30/18 18:06 12/30/18 22:46 Cephulac AL 200 gm ONCE PRN Administration Encephalopathy Lorazepam 2 mg 12/30/18 12:29 01/01/19 13:56 Ativan IV 2 mg Q1HR PRN Administration CIWA-Ar 8-15 Lorazepam 4 mg 12/31/18 00:33 01/01/19 04:16 Ativan IV 4 mg Q1H PRN Administration Vel 16-25 Multivitamins 1 each 12/31/18 10:00 01/01/19 11:02 Theragran Tab PO 1 each QDAY MYNOR Administration Ondansetron HCl 4 mg 12/30/18 12:24 Zofran IV Q8H PRN Nausea And Vomiting Sertraline HCl 25 mg 12/31/18 10:00 01/01/19 11:08 Zoloft PO 25 mg QDAY MYNOR Administration Sodium Chloride 10 ml 12/30/18 22:00 01/01/19 11:02 Sodium Chloride Flush Syringe 10 Ml IV 10 ml BID MYNOR Administration Sodium Chloride 10 ml 12/30/18 12:24 01/01/19 04:17 Sodium Chloride Flush Syringe 10 Ml IV 10 ml PRN PRN Administration LINE FLUSH Thiamine HCl 100 mg 12/31/18 10:00 01/01/19 11:02 Vitamin B-1 PO 100 mg QDAY MYNOR Administration Ziprasidone 20 mg 01/01/19 09:50 01/01/19 10:20 Geodon IM 20 mg Q6HR PRN Administration Agitation
[2019-01-01] MEDS: GEODON IM PRN (21:43)
[2019-01-02 06:09] LABS: Alanine Aminotransferase 107 units/L (7-56); Albumin 3.9 g/dL (3.9-5); BUN/Creatinine Ratio 16; Blood Urea Nitrogen 8 mg/dL (9-20); Calcium 8.8 mg/dL (8.4-10.2); Hemolysis Index 8
[2019-01-02] MEDS: GEODON IM PRN ×2 (10:01→21:47)
[2019-01-02] MEDS: ZOLOFT PO SCH (10:41)
[2019-01-02] MEDS: THERAGRAN Tab PO SCH (10:41)
[2019-01-02] MEDS: PEPCID PO SCH ×2 (10:41→21:47)
[2019-01-02] MEDS: FOLVITE PO SCH (10:42)
[2019-01-02] MEDS: VITAMIN B-1 PO SCH (10:42)
[2019-01-02] MEDS: CEPHULAC PO SCH ×3 (10:43→19:16)
[2019-01-02] MEDS: NORCO 5/325 PO PRN ×2 (12:33→19:15)
[2019-01-02] MEDS: SODIUM CHLORIDE FLUSH SYRINGE 10 ML IV SCH ×2 (13:02→21:48)
--- NOTE | 2019-01-02 14:56 | Progress Note ---
Assessment and Plan Assessment and plan: (1) Hepatic Encephalopathy - Patient is agitated overnight - Patient is on lactulose - On restraints - Continue Geodon - Ammonia level is high (2) Alcohol withdrawal - Continue with CIWA protocol (3) Liver failure with hepatic coma - Improving - On lactulose - Will do hepatic U/S (4) Delirium tremens - Continue CIWA protocol (5) Traumatic hematoma of forehead - CT head normal (6) DVT prophylaxis - SCDs because of the liver problems History Interval history: Patient was seen and evaluated this morning, patient was alert and oriented. Calm and cooprative. Hospitalist Physical - Physical exam Narrative exam: Not in cardiopulmonary distress. The patient appeared well nourished and normally developed. Vital signs as documented. Head exam is unremarkable. No scleral icterus . Neck is without jugular venous distension, thyromegaly, or carotid bruits. Lungs are clear to auscultation. Cardiac exam reveals regular rate and Rhythm. Abdominal exam reveals normal bowel sounds. Extremities are nonedematous and both femoral and pedal pulses are normal. GRAIN THRESHER: Alert and oriented 3. No focal weakness. - Constitutional Vitals: Temp Pulse Resp BP Pulse Ox 98.4 F 117 H 20 159/101 97 01/02/19 12:20 01/02/19 12:20 01/02/19 12:20 01/02/19 12:20 01/02/19 12:20 General appearance: Present: mild distress, obese, disheveled Results - Labs CBC & Chem 7: 12/30/18 09:19 01/02/19 05:32 Labs: Laboratory Last Values WBC 7.0 K/mm3 (4.5-11.0) 12/30/18 09: RBC 4.01 M/mm3 (3.65-5.03) 12/30/18 09:19 Hgb 14.3 gm/dl (11.8-15.2) 12/30/18 09: Hct 40.5 % (35.5-45.6) 12/30/18 09:19 MCV 101 fl (84-94) H 12/30/18 09:19 MCH 36 pg (28-32) H 12/30/18 09:19 MCHC 35 % (32-34) H 12/30/18 09:19 RDW 13.5 % (13.2-15.2) 12/30/18 09:19 Plt Count 64 K/mm3 (140-440) L 12/30/18 09:19 Lymph % (Auto) 8.7 % (13.4-35.0) L 12/30/18 09:19 [place] % (Auto) 5.6 % (0.0-7.3) 12/30/18 09:19 Eos % (Auto) 0.8 % (0.0-4.3) 12/30/18 09:19 Baso % (Auto) 0.4 % (0.0-1.8) 12/30/18 09:19 Lymph # 0.6 K/mm3 (1.2-5.4) L 12/30/18 09:19 [place] # 0.4 K/mm3 (0.0-0.8) 12/30/18 09:19 Eos # 0.1 K/mm3 (0.0-0.4) 12/30/18 09:19 Baso # 0.0 K/mm3 (0.0-0.1) 12/30/18 09:19 Seg Neutrophils % 84.5 % (40.0-70.0) H 12/30/18 09:19 Seg Neutrophils # 5.9 K/mm3 (1.8-7.7) 12/30/18 09:19 PT 16.7 Sec. (12.2-14.9) H 12/30/18 09:19 INR 1.27 (0.87-1.13) H 12/30/18 09:19 APTT 31.0 Sec. (24.2-36.6) 12/30/18 09:19 Sodium 139 mmol/L (137-145) 01/02/19 05:32 Potassium 3.5 mmol/L (3.6-5.0) L 01/02/19 05:32 Chloride 102.4 mmol/L (98-107) 01/02/19 05:32 Carbon Dioxide 21 mmol/L (22-30) L 01/02/19 05:32 19 mmol/L 01/02/19 05:32 BUN 8 mg/dL (9-20) L 01/02/19 05:32 0.5 mg/dL (0.8-1.5) L 01/02/19 05:32 Estimated GFR > 60 ml/min 01/02/19 05:32 16 % 01/02/19 05:32 Glucose 104 mg/dL (75-100) H 01/02/19 05:32 Calcium 8.8 mg/dL (8.4-10.2) 01/02/19 05:32 Phosphorus 1.60 mg/dL (2.5-4.5) L 12/30/18 09:19 Magnesium 1.40 mg/dL (1.7-2.3) L 12/30/18 09:19 Magnesium 1.50 mg/dL (1.7-2.3) L 12/30/18 09:19 2.10 mg/dL (0.1-1.2) H 01/02/19 05:32 2.5 mg/dL (0-0.2) H 12/30/18 09:19 1.9 mg/dL 12/30/18 09:19 AST 169 units/L (5-40) H 01/02/19 05:32 ALT 107 units/L (7-56) H 01/02/19 05:32 110 units/L (35-129) 01/02/19 05:32 65.0 umol/L (25-60) H 01/02/19 05:32 7.0 g/dL (6.3-8.2) 01/02/19 05:32 3.9 g/dL (3.9-5) 01/02/19 05:32 1.3 % 01/02/19 05:32 26 units/L (13-60) 12/30/18 09:19 [place] (Yellow) 12/30/18 13:30 Clear (Clear) 12/30/18 13:30 7.0 (5.0-7.0) 12/30/18 13:30 Ur Specific [place] 1.008 (1.003-1.030) 12/30/18 13:30 <15 mg/dl mg/dL (Negative) 12/30/18 13:30 Neg mg/dL (Negative) 12/30/18 13:30 Neg mg/dL (Negative) 12/30/18 13:30 Neg (Negative) 12/30/18 13:30 Neg (Negative) 12/30/18 13:30 Neg (Negative) 12/30/18 13:30 4.0 mg/dL (<2.0) 12/30/18 13:30 Ur Leukocyte Esterase Neg (Negative) 12/30/18 13:30 6.0 /HPF (0.0-6.0) 12/30/18 13:30 1.0 /HPF (0.0-6.0) 12/30/18 13:30 Presumptive negative 12/30/18 13:30 Presumptive negative 12/30/18 13:30 Ur Barbiturates Screen Presumptive negative 12/30/18 13:30 Ur Phencyclidine Scrn Presumptive negative 12/30/18 13:30 Ur Amphetamines Screen Presumptive negative 12/30/18 13:30 U Benzodiazepines Scrn Presumptive negative 12/30/18 13:30 Presumptive negative 12/30/18 13:30 U Marijuana (THC) Screen Presumptive negative 12/30/18 13:30 Disclamer 12/30/18 13:30 Plasma/Serum Alcohol < 0.01 % (0-0.07) 12/30/18 09:19 Blood Type O POSITIVE 12/30/18 09:19 Antibody Screen Negative 12/30/18 09:19 Active Medications - Current Medications Current Medications: Generic Name Dose Route Start Last Admin Trade Name Freq PRN Reason Stop Dose Admin Acetaminophen 650 mg 12/30/18 12:24 12/30/18 21:01 Tylenol PO 650 mg Q4H PRN Administration Fever >100.5/PONCE Acetaminophen/Hydrocodone [place] 1 each 01/02/19 11:30 01/02/19 12:33 [place] 5/325 PO 1 each Q6H PRN Administration Pain, Moderate (4-6) Albuterol 2.5 mg 12/30/18 12:24 Proventil IH Q4HRT PRN Shortness Of Breath Famotidine 10 mg 12/30/18 22:00 01/02/19 10:41 Pepcid PO 10 mg BID MYNOR Administration Folic Acid 1 mg 12/31/18 10:00 01/02/19 10:42 Folvite PO 1 mg QDAY MYNOR Administration Ibuprofen 400 mg 12/31/18 16:43 01/01/19 21:42 Motrin PO 400 mg TID PRN Administration Pain, Mild (1-3) Lactulose 20 gm 01/02/19 07:30 01/02/19 12:34 Cephulac PO Not Given Q6HR MYNOR Lorazepam 2 mg 12/30/18 12:29 01/01/19 13:56 Ativan IV 2 mg Q1HR PRN Administration CIWA-Ar 8-15 Lorazepam 4 mg 12/31/18 00:33 01/01/19 04:16 Ativan IV 4 mg Q1H PRN Administration CIWA-Ar 16-25 Multivitamins 1 each 12/31/18 10:00 01/02/19 10:41 Theragran Tab PO 1 each QDAY MYNOR Administration Ondansetron HCl 4 mg 12/30/18 12:24 Zofran IV Q8H PRN Nausea And Vomiting Sertraline HCl 25 mg 12/31/18 10:00 01/02/19 10:41 Zoloft PO 25 mg QDAY MYNOR Administration Sodium Chloride 10 ml 12/30/18 22:00 01/02/19 13:02 Sodium Chloride Flush Syringe 10 Ml IV 10 ml BID MYNOR Administration Sodium Chloride 10 ml 12/30/18 12:24 01/01/19 04:17 Sodium Chloride Flush Syringe 10 Ml IV 10 ml PRN PRN Administration LINE FLUSH Thiamine HCl 100 mg 12/31/18 10:00 01/02/19 10:42 Vitamin B-1 PO 100 mg QDAY MYNOR Administration Ziprasidone 20 mg 01/01/19 21:00 01/02/19 10:01 Geodon IM 20 mg Q6H PRN Administration AGITATION
[2019-01-02] MEDS ORDERED: D5/0.45NS 1,000 ML IV SCH (18:00)
--- NOTE | 2019-01-02 19:17 | Ultrasound Report ---
PROCEDURE: US ABDOMEN LIMITED TECHNIQUE: Sonographic images of the abdomen were performed HISTORY: transamnitis, hyperbilrubinemia COMPARISONS: CT abdomen and pelvis 06/23/2018 demonstrating fatty enlarged liver, splenomegaly, abdom inal ultrasound 06/20/2018 showing fatty enlarged liver with coarsened echotexture FINDINGS: The liver is enlarged and heterogeneous with increased echogenicity and coarsened echotexture. Right kidney measures 11.7 cm, sonographically normal. Common duct measures 4.5 mm. Gallbladder is distended. There is an echogenic nonshadowing 6 mm polyp versus nonmobile stone. Gallb ladder wall measures 3.6 mm. Aorta is within normal limits. IMPRESSION: Enlarged echogenic liver with coarsened echotexture and heterogeneous echogenicity. Findings similar to the previous exams, question congestive hepatopathy. Consider liver Doppler exam. No ascites identified. Single polyp versus nonmobile gallstone in the gallbladder. No biliary ductal dilatation.. This document is electronically signed by Jeanette Mackay MD., Jan 02 2019 07:15:27 PM ET
[2019-01-03] MEDS: CEPHULAC PO SCH ×4 (02:14→12:25)
[2019-01-03] MEDS: NORCO 5/325 PO PRN ×2 (06:20→12:26)
[2019-01-03 06:56] VITALS: BP 163/111
[2019-01-03] MEDS: ATIVAN IV PRN (08:40)
[2019-01-03 08:44] LABS: Basophils % (Auto) 0.7 % (0.0-1.8); Eosinophils # (Auto) 0.1 K/mm3 (0.0-0.4); Eosinophils % (Auto) 2.3 % (0.0-4.3); Hematocrit 40.7 % (35.5-45.6); Hemoglobin 13.9 gm/dl (11.8-15.2); Lymphocytes # (Auto) 0.7 K/mm3 (1.2-5.4); Lymphocytes % (Auto) 14.6 % (13.4-35.0); Mean Corpuscular HGB Conc 34 % (32-34); Mean Corpuscular Volume 103 fl (84-94); Monocytes # (Auto) 0.8 K/mm3 (0.0-0.8); Monocytes % (Auto) 15.8 % (0.0-7.3); Platelet Count 107 K/mm3 (140-440); Red Blood Count 3.95 M/mm3 (3.65-5.03); Red Cell Distribution Width 13.9 % (13.2-15.2)
[2019-01-03 08:53] LABS: INR 0.98 (0.87-1.13)
[2019-01-03 08:59] LABS: BUN/Creatinine Ratio 8; Blood Urea Nitrogen 5 mg/dL (9-20); Calcium 9.1 mg/dL (8.4-10.2); Hemolysis Index 8
[2019-01-03] MEDS: PEPCID PO SCH (10:26)
--- NOTE | 2019-01-03 10:26 | Discharge Summary ---
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 Pt is confused and unable to provide detailed history at time of exam. Pt history taken from medical record and ED staff. Staff reports that patient has decreased his use of ETOH over the past 3 days. Pt was at work today and experienced a generalized seizure. Pt also fell from a standing position and struck his head on the floor. Pt transported to ED via private vehicle. Pt seen and evaluated in ED and found to have Encephalopathy, ETOH Withdrawl complicated by Delirium, Liver Failure secondary to ETOH dependence, and Seizures. Pt admitted to medical floor and initiated on CIWA protocol. No further history obtainable. Pt is confused, lethargic and tremulous at time of exam. Pt has positive gag reflex, and is able to protect his airway. patient was admitted to the floor and was managed for alcohol withdrawal. patient was counselled about cessation alcohol. Patient was evaluated by mental health and recommended to follow at [facility]. Patient has liver damage. patient had hepatic encephalopathy with increased ammonia level and was treated with lactulose. RUQ abdominal U/s was done. Patient didn't have any seizure after admission. patient's agitation resolved. patient was hemodynamically stable at the time of discharge. Disposition: -01 TO HOME OR SELFCARE Time spent for discharge: 32 minutes - Discharge Diagnoses (1) Alcohol withdrawal Status: Acute Qualifiers: Complication of substance-induced condition: with delirium Qualified Code(s): F10.231 - Alcohol dependence with withdrawal delirium (2) Hepatic encephalopathy Status: Acute (3) Hypokalemia Status: Acute (4) Hypomagnesemia Status: Acute (5) Liver failure with hepatic coma Status: Acute Qualifiers: Liver failure chronicity: subacute Qualified Code(s): K72.01 - Acute and subacute hepatic failure with coma (6) Delirium tremens Status: Acute Core Measure Documentation - Palliative Care Palliative Care/ Comfort Measures: Not Applicable - Core Measures Any of the following diagnoses?: none Exam - Physical Exam Narrative exam: Not in cardiopulmonary distress. The patient appeared well nourished and normally developed. Vital signs as documented. Head exam is unremarkable. No scleral icterus . Neck is without jugular venous distension, thyromegaly, or carotid bruits. Lungs are clear to auscultation. Cardiac exam reveals regular rate and Rhythm. Abdominal exam reveals normal bowel sounds. Extremities are nonedematous and both femoral and pedal pulses are normal. 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 No focal weakness. - Constitutional Vitals: Temp Pulse Resp BP Pulse Ox 98.5 F 94 H 20 163/111 97 01/03/19 05:55 01/03/19 05:55 01/03/19 05:55 01/03/19 05:55 01/03/19 05:55 Plan Activity: no restrictions Weight Bearing Status: Full Weight Bearing Diet: regular Additional Instructions: Follow at [facility] in 1[facility]2 weeks Follow up with: PRIMARY CARE, [Primary Care Provider] - 3-5 Days Forms: Work/School Release Form Prescriptions: Lactulose [Cephulac] 20 gm PO Q6HR #3 bottle Folic Acid [Folvite] 1 mg PO QDAY #30 tablet Hydroxyzine HCl [hydrOXYzine] 50 mg PO TID PRN #15 tablet PRN Reason: Anxiety Ibuprofen [Motrin 400 MG tab] 600 mg PO TID PRN #20 tablet PRN Reason: Pain, Mild (1-3) Multivitamin Tab [Multiple Vitamin TAB (Theragran)] 1 each PO QDAY #30 tablet Famotidine [Pepcid] 10 mg PO BID #30 tablet traMADol [Ultram 50 MG tab] 50 mg PO Q6HR PRN #20 tablet PRN Reason: Pain Thiamine [Vitamin B-1] 100 mg PO QDAY #30 tablet Sertraline [Zoloft] 25 mg PO QDAY #30 tablet
[2019-01-03] MEDS: THERAGRAN Tab PO SCH (10:27)
[2019-01-03] MEDS: FOLVITE PO SCH (10:27)
[2019-01-03] MEDS: VITAMIN B-1 PO SCH (10:27)
[2019-01-03] MEDS: ZOLOFT PO SCH (10:27)
[2019-01-03] MEDS: SODIUM CHLORIDE FLUSH SYRINGE 10 ML IV SCH (10:27)
== END 2019-01-03 13:50 | disposition home or self-care (01) | DRG 432 ==
LOC: ED 08:55 → 3A 13:23
PROVIDERS: ADMIT Internal Medicine; ATTEND Internal Medicine
DX: K70.41 Alcoholic hepatic failure with coma (principal); G93.41 Metabolic encephalopathy; F10.231 Alcohol dependence with withdrawal delirium; F11.20 Opioid dependence, uncomplicated; E87.6 Hypokalemia; S00.83XA Contusion of other part of head, initial encounter; W18.39XA Other fall on same level, initial encounter; E83.42 Hypomagnesemia; Y92.89 Other specified places as the place of occurrence of the external cause; Y93.89 Activity, other specified; Y99.8 Other external cause status; Z88.5 Allergy status to narcotic agent; Z79.899 Other long term (current) drug therapy
CPT/HCPCS: 36415; 70450; 70486; 71045; 72070; 72100; 72125; 76705; 80048; 80053; 80076; 80307; 80320; 81001; 82140; 83690; 83735; 84100; 85025; 85610; 85730; 86850; 86900; 86901; 87116; 93005; 93010; 96365; 96367; 96375; G0378; G0480; J1170; J1200; J2060; J2405; J3411; J3475; J3486; J7030

== ENCOUNTER 2019-04-24 15:02 | Emergency (ER) | payer BC ==
--- NOTE | 2019-04-24 15:11 | Emergency Department Report ---
Blank Doc - Documentation Documentation: 33-year-old male that presents with detox from alcohol. This initial assessment/diagnostic orders/clinical plan/treatment(s) is/are subject to change based on patient's health status, clinical progression and re- assessment by fellow clinical providers in the ED. Further treatment and workup at subsequent clinical providers discretion. Patient/guardians urged not to elope from the ED as their condition may be serious if not clinically assessed and managed. Initial orders include: 1- Patient sent to MAIN ED for further evaluation and treatment 2- labs 3- UA
[2019-04-24 15:35] LABS: Basophils % (Auto) 0.4 % (0.0-1.8); Eosinophils # (Auto) 0.1 K/mm3 (0.0-0.4); Eosinophils % (Auto) 1.5 % (0.0-4.3); Hematocrit 49.4 % (35.5-45.6); Lymphocytes # (Auto) 2.6 K/mm3 (1.2-5.4); Lymphocytes % (Auto) 26.5 % (13.4-35.0); Mean Corpuscular HGB Conc 35 % (32-34); Mean Corpuscular Volume 94 fl (84-94); Monocytes # (Auto) 0.7 K/mm3 (0.0-0.8); Monocytes % (Auto) 7.2 % (0.0-7.3); Platelet Count 191 K/mm3 (140-440); Red Blood Count 5.25 M/mm3 (3.65-5.03)
[2019-04-24 15:48] LABS: INR 1.12 (0.87-1.13)
[2019-04-24 15:49] LABS: Partial Thromboplastin Time 27.2 Sec. (24.2-36.6)
[2019-04-24 15:59] LABS: Alanine Aminotransferase 42 units/L (7-56); Albumin 5.2 g/dL (3.9-5); BUN/Creatinine Ratio 7; Blood Urea Nitrogen 6 mg/dL (9-20); Calcium 9.5 mg/dL (8.4-10.2); Hemolysis Index 15
[2019-04-24 17:14] LABS: Bilirubin,Urine NEG (Negative); Blood,Urine MOD (Negative); Color,Urine Yellow (Yellow); Granular Casts,Urine 9 /LPF; Mucus,Urine FEW /HPF
--- NOTE | 2019-04-24 17:15 | Cat Scan Report ---
CT head/brain wo con INDICATION: headache/neck pain. TECHNIQUE: Routine CT head without contrast. All CT scans at this location are performed using CT dos e reduction for ALARA by means of automated exposure control. COMPARISON: None. FINDINGS: BRAIN / INTRACRANIAL CONTENTS: No acute hemorrhage, mass effect, midline shift, or hydrocephalus. No appreciable acute large territorial or lacunar infarct. No chronic infarct or focal atrophy. Normal b rain volume and ventricular/sulcal size for age. ORBITS: No significant abnormality of visualized orbits. SINUSES / MASTOIDS: No significant abnormality of visualized sinuses and mastoid air cells. ADDITIONAL FINDINGS: None. IMPRESSION: 1. Negative head CT. Signer Name: Vijay Morales MD Signed: 04/24/2019 5:11 PM Workstation Name: [id number]
--- NOTE | 2019-04-24 17:17 | Cat Scan Report ---
CT CERVICAL SPINE WITHOUT CONTRAST INDICATION: headache/neck pain. TECHNIQUE: Axial CT images of the spine were obtained. Sagittal and coronal reformatted images were produced. Al l CT scans at this location are performed using CT dose reduction for ALARA by means of automated exp osure control. COMPARISON: None available. FINDINGS: ACUTE FRACTURE(S) OR SUBLUXATION: None. SPINAL DEGENERATIVE CHANGES: No significant degenerative changes. PARASPINAL SOFT TISSUES: No soft tissue swelling or other acute abnormalities. ADDITIONAL FINDINGS: No significant additional findings. IMPRESSION: 1. No acute fracture or subluxation in the spine in neutral position. Signer Name: Vijay Morales MD Signed: 04/24/2019 5:13 PM Workstation Name: [id number]
[2019-04-24 17:21] LABS: Amphetamine Screen,Urine PRESUMPTIVE NEGATIVE; Benzodiazepines Screen,Urine PRESUMPTIVE NEGATIVE; Cannabinoid Screen,Urine PRESUMPTIVE NEGATIVE; Cocaine Screen,Urine PRESUMPTIVE NEGATIVE; Methadone Screen,Urine PRESUMPTIVE NEGATIVE; Opiate Screen,Urine PRESUMPTIVE NEGATIVE
[2019-04-24 17:34] LABS: Protein,Urine >500 mg/dL (Negative)
[2019-04-24] MEDS ORDERED: VITAMIN B-1 100 MG, FOLVITE 1 MG, INFUVITE 10 ML in NACL 0.9% 1000 ML 1,000 ML IV ONE (20:49)
--- NOTE | 2019-04-24 20:56 | Emergency Department Report ---
<BROOKS PAZ - Last Filed: 04/24/19 20:51> ED Alcohol HPI - General Chief Complaint: Alcohol Stated Complaint: DETOX Time Seen by Provider: 04/24/19 15:10 Source: patient Mode of arrival: Ambulatory Limitations: No Limitations - History of Present Illness Initial Comments: Patient is 33 years old male with history of chronic alcoholism with multiple admission for detox before. He should brought to the emergency room accompanied by his mother. Mother stated that the has been intoxicated today and he fell while he was putting his trash outside. Patient hit his head and neck and has abrasion on both knees. Patient mother stated that he usually has seizure when he have withdrawal, so she wanted him to be admitted for detox. MD Complaint: alcohol intoxication, alcohol dependence, desires rehab, medical clearance for det Chronic Alcohol Use: Yes Previous Visits for Alcohol Intoxication?: Yes Recent Trauma: Yes Associated Symptoms: denies other symptoms Treatments Prior to Arrival: none - Related Data Home Medications Medication Instructions Recorded Confirmed Last Taken Gabapentin [Neurontin] 600 mg PO QAM 04/24/19 04/24/19 Unknown Gabapentin [Neurontin] 900 mg PO QHS 04/24/19 04/24/19 Unknown Hydroxyzine HCl [hydrOXYzine] 30 mg PO TID PRN 04/24/19 04/24/19 Unknown Sertraline [Zoloft] 100 mg PO QDAY 04/24/19 04/24/19 04/24/19 10:00 traZODone [Desyrel] 100 mg PO QHS 04/24/19 04/24/19 Unknown Previous Rx's Medication Instructions Recorded Last Taken Type Ibuprofen [Motrin 400 MG tab] 600 mg PO TID PRN #20 tablet 01/03/19 Unknown Rx Allergies Allergy/AdvReac Type Severity Reaction Status Date / Time morphine AdvReac Vomiting Verified 12/30/18 09:18 ED Review of Systems Comment: All other systems reviewed and negative Constitutional: denies: chills, fever Respiratory: denies: cough, shortness of breath, SOB with exertion, wheezing Cardiovascular: denies: chest pain, palpitations Gastrointestinal: denies: abdominal pain, nausea Musculoskeletal: denies: back pain Psychiatric: denies: depression, auditory hallucinations, visual hallucinations, homicidal thoughts, suicidal thoughts ED Past Medical Hx - Past Medical History Hx Congestive Heart Failure: No Hx Diabetes: No Hx Seizures: Yes Hx Asthma: No Hx COPD: No Hx HIV: No Additional medical history: chronic back pain - Surgical History Additional Surgical History: Shoulder surgery - Social History Smoking Status: Never Smoker Substance Use Type: Alcohol - Medications Home Medications: Home Medications Medication Instructions Recorded Confirmed Last Taken Type Ibuprofen [Motrin 400 MG tab] 600 mg PO TID PRN #20 tablet 01/03/19 04/24/19 Unknown Rx Gabapentin [Neurontin] 600 mg PO QAM 04/24/19 04/24/19 Unknown History Gabapentin [Neurontin] 900 mg PO QHS 04/24/19 04/24/19 Unknown History Hydroxyzine HCl [hydrOXYzine] 30 mg PO TID PRN 04/24/19 04/24/19 Unknown History Sertraline [Zoloft] 100 mg PO QDAY 04/24/19 04/24/19 04/24/19 10:00 History traZODone [Desyrel] 100 mg PO QHS 04/24/19 04/24/19 Unknown History ED Physical Exam - General Limitations: No Limitations General appearance: appears intoxicated - Head Head exam: Present: atraumatic, normocephalic, normal inspection - Eye Eye exam: Present: normal appearance - ENT ENT exam: Present: normal exam, normal orophraynx, mucous membranes moist - Neck Neck exam: Present: normal inspection, full ROM. Absent: tenderness, meningismus, lymphadenopathy, thyromegaly - Respiratory Respiratory exam: Present: normal lung sounds bilaterally - Cardiovascular Cardiovascular Exam: Present: regular rate, normal rhythm, normal heart sounds - GI/Abdominal GI/Abdominal exam: Present: soft, normal bowel sounds. Absent: distended, tenderness, guarding, rebound, rigid, organomegaly, mass, bruit, pulsatile mass, hernia - Extremities Exam Extremities exam: Present: full ROM, normal capillary refill. Absent: pedal edema, calf tenderness - Back Exam Back exam: Present: normal inspection, full ROM. Absent: CVA tenderness (R), CVA tenderness (L), muscle spasm, paraspinal tenderness, vertebral tenderness - Neurological Exam Neurological exam: Present: altered, CN II-XII intact. Absent: motor sensory deficit - Psychiatric Psychiatric exam: Absent: homicidal ideation, suicidal ideation - Skin Skin exam: Present: warm, dry, abrasion ED Medical Decision Making - Lab Data Result diagrams: 04/24/19 15:23 04/24/19 15:23 ED Disposition Clinical Impression: Alcohol abuse, Alcohol intoxication, Medical clearance for psychiatric admission Disposition: DC-01 TO HOME OR SELFCARE Condition: Stable Instructions: Abuse of Alcohol (ED) Additional Instructions: Follow-up with the [facility]. Return is symptoms worsen as indicated by your discharge instructions. Referrals: PRIMARY CARE, [Primary Care Provider] - 3-5 Days [facility] [Other] - [facility] [Provider Group] - 3-5 Days [facility] [Outside] - 3-5 Days <JUNG KINGSLEY - Last Filed: 04/25/19 12:44> ED Review of Systems ROS: Stated complaint: DETOX Other details as noted in HPI ED Course Vital Signs 04/24/19 04/24/19 04/24/19 15:10 20:40 21:05 Temperature 98.6 F 99.3 F Pulse Rate 82 131 H 113 H Respiratory 16 18 Rate Blood Pressure Blood Pressure 133/90 161/98 [Left] O2 Sat by Pulse 97 93 Oximetry 04/24/19 04/24/19 04/24/19 21:45 22:00 22:45 Temperature Pulse Rate 107 H Respiratory 18 19 18 Rate Blood Pressure 127/75 Blood Pressure [Left] O2 Sat by Pulse 96 Oximetry 04/24/19 04/25/19 04/25/19 23:00 00:00 01:00 Temperature Pulse Rate 76 Respiratory Rate Blood Pressure 121/70 111/67 114/71 Blood Pressure [Left] O2 Sat by Pulse 94 88 93 Oximetry 04/25/19 04/25/19 04/25/19 02:00 03:00 04:00 Temperature Pulse Rate 82 86 88 Respiratory Rate Blood Pressure 121/64 114/67 115/69 Blood Pressure [Left] O2 Sat by Pulse 92 93 94 Oximetry 04/25/19 04/25/19 04/25/19 06:00 06:16 07:00 Temperature 98.4 F Pulse Rate 108 H 87 Respiratory 18 Rate Blood Pressure 142/81 121/75 Blood Pressure 120/81 [Left] O2 Sat by Pulse 94 92 Oximetry 04/25/19 04/25/19 04/25/19 08:00 08:52 09:00 Temperature Pulse Rate 111 H 113 H Respiratory 8 L 8 L 13 Rate Blood Pressure 130/76 135/77 Blood Pressure [Left] O2 Sat by Pulse 95 95 96 Oximetry 04/25/19 04/25/19 04/25/19 10:00 11:00 12:00 Temperature Pulse Rate 99 H 93 H 92 H Respiratory 13 16 18 Rate Blood Pressure 112/62 126/72 117/81 Blood Pressure [Left] O2 Sat by Pulse 95 93 95 Oximetry ED Medical Decision Making - Lab Data Result diagrams: 04/24/19 15:23 04/24/19 15:23 Critical care attestation.: If time is entered above; I have spent that time in minutes in the direct care of this critically ill patient, excluding procedure time. ED Disposition Is pt being admited?: No Does the pt Need Aspirin: No Time of Disposition: 12:43
[2019-04-24] MEDS ORDERED: TYLENOL PO ONE (21:04)
[2019-04-24] MEDS ORDERED: ATIVAN IV PRN ×2 (21:33)
[2019-04-24] MEDS: ATIVAN IV PRN (22:47)
[2019-04-25] MEDS ORDERED: ZOFRAN IV ONE (06:10)
[2019-04-25] MEDS ORDERED: ZOFRAN ONE (06:14)
[2019-04-25] MEDS: ATIVAN IV PRN ×2 (06:19→10:19)
[2019-04-25] MEDS ORDERED: TYLENOL PO ONE (10:13)
--- NOTE | 2019-04-25 12:19 | Consultation ---
History of Present Illness - Reason for Consult Consult date: 04/25/19 Reason for consult: Mental Health Evaluation Requesting physician: BROOKS PAZ - Chief Complaint Chief complaint: 'I need to do better about not drinking" - History of Present Psychiatric Illness 33 y.o. white male who presented to the ER for alcohol abuse per his mother. This patient is known to me. Today the patient was calm and cooperative during the assessment. He stated that he enjoy drinking (etoh), but is aware that his behavior can be unsafe. He stated he drink everyday. He stated that he has a hx of alcohol abuse/depression and take Zoloft. He stated that he have been to rehab in the past and plan to attend rehab once discharged. Per collateral information from his mother Herbie Weinberg at [phone], she have arranged for her son to attend [facility] (residential treatment). She stated that she will transport her son to the facility once he is discharged from [facility]. The patient dneis SI/HI's, AVH's, and depression. Medications and Allergies Allergies Allergy/AdvReac Type Severity Reaction Status Date / Time morphine AdvReac Vomiting Verified 12/30/18 09:18 Home Medications Medication Instructions Recorded Confirmed Last Taken Type Ibuprofen [Motrin 400 MG tab] 600 mg PO TID PRN #20 tablet 01/03/19 04/24/19 Unknown Rx Gabapentin [Neurontin] 600 mg PO QAM 04/24/19 04/24/19 Unknown History Gabapentin [Neurontin] 900 mg PO QHS 04/24/19 04/24/19 Unknown History Hydroxyzine HCl [hydrOXYzine] 30 mg PO TID PRN 04/24/19 04/24/19 Unknown History Sertraline [Zoloft] 100 mg PO QDAY 04/24/19 04/24/19 04/24/19 10:00 History traZODone [Desyrel] 100 mg PO QHS 04/24/19 04/24/19 Unknown History Active Meds: Active Medications Lorazepam (Ativan) 2 mg IV Q1HR PRN PRN Reason: CIWA-Ar 8-15 Last Admin: 04/25/19 10:19 Dose: 2 mg Documented by: Lorazepam (Ativan) 4 mg IV Q1HR PRN PRN Reason: CIWA-Ar 16-25 Lorazepam (Ativan) 4 mg IV Q15MIN PRN PRN Reason: CIWA-Ar >25 Past psychiatric history - Past Medical History Past Medical History: No medical history Past Surgical History: No surgical history - past Psychiatric treatment and history psychiatric treatment history: Hx of Alcohol Use and Depresion. Denies a a fam psy hx. Mental Status Exam - Vital signs Last Vital Signs Temp 98.4 F 04/25/19 07:00 Pulse 93 H 04/25/19 11:00 Resp 16 04/25/19 11:00 BP 126/72 04/25/19 11:00 Pulse Ox 93 04/25/19 11:00 - Exam Narrative exam: MSE: Appearance: calm, cooperative Behavior: regular eye contact Speech: regular rate and tone Mood: "okay" Affect: congruent to mood Thought Process: linear Thought Content: denies SI/HI's and AVH's Motor Activity: sitting up in bed Cognition: A/O x 3 Insight: fair Judgment: fair Results Result Diagrams: 04/24/19 15:23 04/24/19 15:23 Abnormal lab results 04/24/19 04/24/19 04/24/19 Range/Units 15:23 15:23 15:23 RBC 5.25 H (3.65-5.03) M/mm3 Hgb 17.0 H (11.8-15.2) gm/dl Hct 49.4 H (35.5-45.6) % MCH 33 H (28-32) pg MCHC 35 H (32-34) % BUN 6 L (9-20) mg/dL Glucose 131 H (75-100) mg/dL Total Bilirubin 1.50 H (0.1-1.2) mg/dL AST 86 H (5-40) units/L Total Protein 9.0 H (6.3-8.2) g/dL Albumin 5.2 H (3.9-5) g/dL Plasma/Serum Alcohol 0.42 H (0-0.07) % All other labs normal. Assessment and Plan Assessment and plan: Impression: Alcohol Use DO. hx of Depression. Today the patient is calm and cooperative during the assessment. Mild tremors noted (etoh). Recommendation/Plan: Rescind 2012. The patient do not need a prescription for Zoloft. Discussed the importance to abstain from alcohol consumption (etoh) with the patient, he verbalized understanding. Dispo: The patient can follow up with [facility] for residential treatment. Will staff with Dr Donita Ochoa.
[2019-04-25 14:16] VITALS: BP 114/65
== END 2019-04-25 14:20 | disposition home or self-care (01) ==
LOC: EEVIPCON 15:02 → ED 15:02
DX: S80.211A Abrasion, right knee, initial encounter (principal); S80.212A Abrasion, left knee, initial encounter; F10.129 Alcohol abuse with intoxication, unspecified; F32.9 Major depressive disorder, single episode, unspecified; R56.9 Unspecified convulsions; Z98.890 Other specified postprocedural states; G89.29 Other chronic pain; Z88.5 Allergy status to narcotic agent; W19.XXXA Unspecified fall, initial encounter; Y93.89 Activity, other specified; Y92.89 Other specified places as the place of occurrence of the external cause; Y99.8 Other external cause status
CPT/HCPCS: 36415; 70450; 72125; 80053; 80307; 81001; 85025; 85610; 85730; 93005; 93010; 96365; 96366; 96375; 99284; J2060; J2405; J3411; J7030; 80320; G0480

== ENCOUNTER 2021-01-19 13:22 | Observation (INO) | payer BC, OTHER ==
--- NOTE | 2021-01-19 13:58 | Event Note ---
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 Further treatment and workup at subsequent clinical providers discretion. Patient/guardian urged not to elope from the ED as their condition may be serious if not clinically assessed and managed. Initial orders include: Labs
[2021-01-19 15:17] LABS: Basophils # (Auto) 0.1 K/mm3 (0.0-0.1); Basophils % (Auto) 0.4 % (0.0-1.8); Eosinophils # (Auto) 0.3 K/mm3 (0.0-0.4); Eosinophils % (Auto) 1.7 % (0.0-4.3); Hematocrit 23.3 % (35.5-45.6); Lymphocytes # (Auto) 3.2 K/mm3 (1.2-5.4); Lymphocytes % (Auto) 20.3 % (13.4-35.0); Mean Corpuscular HGB Conc 34 % (32-34); Mean Corpuscular Volume 98 fl (84-94); Monocytes # (Auto) 1.3 K/mm3 (0.0-0.8); Platelet Count 216 K/mm3 (140-440); Red Blood Count 2.39 M/mm3 (3.65-5.03); Red Cell Distribution Width 13.7 % (13.2-15.2)
[2021-01-19] MEDS ORDERED: ONDANSETRON 4 MG/2 ML INJ IV ONE (15:22)
[2021-01-19] MEDS ORDERED: SODIUM CHLORIDE 0.9% 1000 ML 1,000 ML IV ONE (15:22)
[2021-01-19] MEDS ORDERED: PANTOPRAZOLE 40 MG INJ IV ONE (15:22)
[2021-01-19] MEDS ORDERED: FAMOTIDINE 20 MG/2 ML INJ IV ONE (15:22)
[2021-01-19 15:34] LABS: Alanine Aminotransferase 21 units/L (7-56); Albumin 4.2 g/dL (3.9-5); BUN/Creatinine Ratio 20; Blood Urea Nitrogen 26 mg/dL (9-20); Calcium 9.3 mg/dL (8.4-10.2); Hemolysis Index 2
[2021-01-19 15:53] LABS: INR 1.19 (0.87-1.13)
[2021-01-19 15:54] LABS: Partial Thromboplastin Time 31.7 Sec. (24.2-36.6)
--- NOTE | 2021-01-19 16:07 | Emergency Department Report ---
ED General Adult HPI - General Chief complaint: Recheck/Abnormal Lab/Rx Stated complaint: ABNORMAL LAB Time Seen by Provider: 01/19/21 13:57 Source: patient Mode of arrival: Ambulatory Limitations: No Limitations - History of Present Illness Severity scale (0 -10): 0 - Related Data Home Medications Medication Instructions Recorded Confirmed Last Taken Gabapentin [Neurontin] 600 mg PO QAM 04/24/19 04/24/19 Unknown Gabapentin [Neurontin] 900 mg PO QHS 04/24/19 04/24/19 Unknown Hydroxyzine HCl [hydrOXYzine] 30 mg PO TID PRN 04/24/19 04/24/19 Unknown Sertraline [Zoloft] 100 mg PO QDAY 04/24/19 04/24/19 04/24/19 10:00 traZODone [Desyrel] 100 mg PO QHS 04/24/19 04/24/19 Unknown Previous Rx's Medication Instructions Recorded Last Taken Type Ibuprofen [Motrin 400 MG tab] 600 mg PO TID PRN #20 tablet 01/03/19 Unknown Rx Allergies Allergy/AdvReac Type Severity Reaction Status Date / Time morphine AdvReac Vomiting Verified 01/19/21 16:01 ED Review of Systems ROS: Stated complaint: ABNORMAL LAB Other details as noted in HPI ED Past Medical Hx - Past Medical History Hx Congestive Heart Failure: No Hx Diabetes: No Hx Seizures: Yes Hx Asthma: No Hx COPD: No Hx HIV: No Additional medical history: chronic back pain - Surgical History Past Surgical History?: Yes Additional Surgical History: Shoulder surgery - Social History Smoking Status: Former Smoker - Medications Home Medications: Home Medications Medication Instructions Recorded Confirmed Last Taken Type Ibuprofen [Motrin 400 MG tab] 600 mg PO TID PRN #20 tablet 01/03/19 04/24/19 Unknown Rx Gabapentin [Neurontin] 600 mg PO QAM 04/24/19 04/24/19 Unknown History Gabapentin [Neurontin] 900 mg PO QHS 04/24/19 04/24/19 Unknown History Hydroxyzine HCl [hydrOXYzine] 30 mg PO TID PRN 04/24/19 04/24/19 Unknown History Sertraline [Zoloft] 100 mg PO QDAY 04/24/19 04/24/19 04/24/19 10:00 History traZODone [Desyrel] 100 mg PO QHS 04/24/19 04/24/19 Unknown History ED Physical Exam - General Limitations: No Limitations ED Course Vital Signs 01/19/21 01/19/21 13:51 13:59 Temperature 99.2 F 99.2 F Pulse Rate 88 Respiratory 18 18 Rate Blood Pressure 111/60 Blood Pressure 111/60 [Right] O2 Sat by Pulse 94 Oximetry ED Medical Decision Making - Lab Data Result diagrams: 01/19/21 14:35 01/19/21 14:35 Critical care attestation.: If time is entered above; I have spent that time in minutes in the direct care of this critically ill patient, excluding procedure time. ED Disposition Condition: Stable Referrals: PRIMARY CARE, [Primary Care Provider] - 3-5 Days
--- NOTE | 2021-01-19 16:55 | Cat Scan Report ---
CT ABDOMEN PELVIS WITHOUT CONTRAST INDICATION / CLINICAL INFORMATION: NVD. TECHNIQUE: Axial CT images were obtained through the abdomen and pelvis without IV contrast. All CT scans at [facility] location are performed using CT dose reduction for ALARA by means of automated exposure control. COMPARISON: None available. FINDINGS: LOWER CHEST: No significant abnormality. LIVER: No significant abnormality. GALLBLADDER: Very small calculus present within the gallbladder. BILE DUCTS: No significant abnormality. PANCREAS: No significant abnormality. SPLEEN: Prominent spleen-mild splenomegaly ADRENALS: No significant abnormality. RIGHT KIDNEY and URETER: Very small punctate calcifications on the right LEFT KIDNEY and URETER: No significant abnormality. STOMACH and SMALL BOWEL: No significant abnormality. COLON: No significant abnormality. APPENDIX: No significant abnormality. PERITONEUM: No free fluid. No free air. No fluid collection. LYMPH NODES: No significant adenopathy. AORTA and ARTERIES: No significant abnormality. IVC and VEINS: No significant abnormality. URINARY BLADDER: No significant abnormality. REPRODUCTIVE ORGANS: No significant abnormality ADDITIONAL FINDINGS: None. SKELETAL SYSTEM: No significant abnormality. IMPRESSION: 1. Cholelithiasis 2. Right nephrolithiasis 3. Splenomegaly Signer Name: David Haro MD Signed: 01/19/2021 4:51 PM Workstation Name: [id number]
--- NOTE | 2021-01-19 18:22 | Emergency Department Report ---
ED General Adult HPI - General Chief complaint: Recheck/Abnormal Lab/Rx Stated complaint: ABNORMAL LAB Time Seen by Provider: 01/19/21 13:57 Source: patient Mode of arrival: Ambulatory Limitations: No Limitations - History of Present Illness Initial comments: Patient is a 35-year-old male who has a past medical history alcoholic cirrhosis who is presenting with abnormal labs. Patient had laboratory studies done on 01/12/2021 which showed that his BUN/creatinine was 40 and 2.94 respectively. Patient's last hemoglobin was is from March 2020 which was 13.0. Patient over the last 2 to 3 days has had nausea vomiting diarrhea. States that the vomit and diarrhea both dark in color. States that the vomit did appear to be coffee-ground like when questioned. Patient has had some crampiness in his abdomen. Some generalized weakness is present. No cough cold congestion fevers or chills. Patient was sent in by the nephrology office after labs were reviewed Dr. Long told the patient to come to the emergency department he was see him here. Patient has never had any history of any renal insufficiency. Severity scale (0 -10): 3 - Related Data Home Medications Medication Instructions Recorded Confirmed Last Taken Gabapentin [Neurontin] 600 mg PO QAM 04/24/19 04/24/19 Unknown Gabapentin [Neurontin] 900 mg PO QHS 04/24/19 04/24/19 Unknown Hydroxyzine HCl [hydrOXYzine] 30 mg PO TID PRN 04/24/19 04/24/19 Unknown Sertraline [Zoloft] 100 mg PO QDAY 04/24/19 04/24/19 04/24/19 10:00 traZODone [Desyrel] 100 mg PO QHS 04/24/19 04/24/19 Unknown Previous Rx's Medication Instructions Recorded Last Taken Type Ibuprofen [Motrin 400 MG tab] 600 mg PO TID PRN #20 tablet 01/03/19 Unknown Rx Allergies Allergy/AdvReac Type Severity Reaction Status Date / Time morphine AdvReac Vomiting Verified 01/19/21 16:01 ED Review of Systems ROS: Stated complaint: ABNORMAL LAB Other details as noted in HPI Comment: All other systems reviewed and negative ED Past Medical Hx - Past Medical History Hx Congestive Heart Failure: No Hx Diabetes: No Hx Seizures: Yes Hx Asthma: No Hx COPD: No Hx HIV: No Additional medical history: chronic back pain - Surgical History Past Surgical History?: Yes Additional Surgical History: Shoulder surgery - Social History Smoking Status: Former Smoker - Medications Home Medications: Home Medications Medication Instructions Recorded Confirmed Last Taken Type Ibuprofen [Motrin 400 MG tab] 600 mg PO TID PRN #20 tablet 01/03/19 04/24/19 Unknown Rx Gabapentin [Neurontin] 600 mg PO QAM 04/24/19 04/24/19 Unknown History Gabapentin [Neurontin] 900 mg PO QHS 04/24/19 04/24/19 Unknown History Hydroxyzine HCl [hydrOXYzine] 30 mg PO TID PRN 04/24/19 04/24/19 Unknown History Sertraline [Zoloft] 100 mg PO QDAY 04/24/19 04/24/19 04/24/19 10:00 History traZODone [Desyrel] 100 mg PO QHS 04/24/19 04/24/19 Unknown History ED Physical Exam - General Limitations: No Limitations General appearance: alert, in no apparent distress, other (pale) - Head Head exam: Present: atraumatic, normocephalic - Eye Eye exam: Present: normal appearance, PERRL, EOMI - ENT ENT exam: Present: mucous membranes moist - Neck Neck exam: Present: normal inspection - Respiratory Respiratory exam: Present: normal lung sounds bilaterally. Absent: respiratory distress, wheezes, rales, rhonchi - Cardiovascular Cardiovascular Exam: Present: regular rate, normal rhythm, normal heart sounds. Absent: systolic murmur, diastolic murmur, rubs, gallop - GI/Abdominal GI/Abdominal exam: Present: soft, normal bowel sounds. Absent: distended, tenderness, guarding, rebound - Rectal Rectal exam: Present: normal inspection, normal rectal tone, heme (+) stool, other (dark stools) - Extremities Exam Extremities exam: Present: normal inspection - Back Exam Back exam: Present: normal inspection - Neurological Exam Neurological exam: Present: alert, oriented X3 - Psychiatric Psychiatric exam: Present: normal affect, normal mood - Skin Skin exam: Present: warm, dry, intact, normal color. Absent: rash ED Course Vital Signs 01/19/21 01/19/21 13:51 13:59 Temperature 99.2 F 99.2 F Pulse Rate 88 Respiratory 18 18 Rate Blood Pressure 111/60 Blood Pressure 111/60 [Right] O2 Sat by Pulse 94 Oximetry ED Medical Decision Making - Lab Data Result diagrams: 01/19/21 14:35 01/19/21 14:35 Lab Results 01/19/21 01/19/21 01/19/21 Range/Units 14:35 14:35 15:25 WBC 15.8 H (4.5-11.0) K/mm3 RBC 2.39 L (3.65-5.03) M/mm3 Hgb 8.0 L (11.8-15.2) gm/dl Hct 23.3 L (35.5-45.6) % MCV 98 H (84-94) fl MCH 33 H (28-32) pg MCHC 34 (32-34) % RDW 13.7 (13.2-15.2) % Plt Count 216 (140-440) K/mm3 Lymph % (Auto) 20.3 (13.4-35.0) % [place] % (Auto) 8.0 H (0.0-7.3) % Eos % (Auto) 1.7 (0.0-4.3) % Baso % (Auto) 0.4 (0.0-1.8) % Lymph # (Auto) 3.2 (1.2-5.4) K/mm3 [place] # (Auto) 1.3 H (0.0-0.8) K/mm3 Eos # (Auto) 0.3 (0.0-0.4) K/mm3 Baso # (Auto) 0.1 (0.0-0.1) K/mm3 Seg Neutrophils % 69.6 (40.0-70.0) % Seg Neutrophils # 11.0 H (1.8-7.7) K/mm3 PT 15.6 H (12.2-14.9) Sec. INR 1.19 H (0.87-1.13) APTT 31.7 (24.2-36.6) Sec. Sodium 136 L (137-145) mmol/L Potassium 4.3 (3.6-5.0) mmol/L Chloride 99.1 (98-107) mmol/L Carbon Dioxide 23 (22-30) mmol/L Anion Gap 18 mmol/L BUN 26 H (9-20) mg/dL Creatinine 1.3 (0.8-1.3) mg/dL Estimated GFR > 60 ml/min BUN/Creatinine Ratio 20 % Glucose 86 (75-100) mg/dL Calcium 9.3 (8.4-10.2) mg/dL Total Bilirubin 1.00 (0.1-1.2) mg/dL AST 34 (5-40) units/L ALT 21 (7-56) units/L Alkaline Phosphatase 77 (35-129) units/L Ammonia (25-60) umol/L Total Protein 7.2 (6.3-8.2) g/dL Albumin 4.2 (3.9-5) g/dL Albumin/Globulin Ratio 1.4 % Plasma/Serum Alcohol (0-0.07) % 01/19/21 01/19/21 Range/Units 15:25 15:29 WBC (4.5-11.0) K/mm3 RBC (3.65-5.03) M/mm3 Hgb (11.8-15.2) gm/dl Hct (35.5-45.6) % MCV (84-94) fl MCH (28-32) pg MCHC (32-34) % RDW (13.2-15.2) % Plt Count (140-440) K/mm3 Lymph % (Auto) (13.4-35.0) % [place] % (Auto) (0.0-7.3) % Eos % (Auto) (0.0-4.3) % Baso % (Auto) (0.0-1.8) % Lymph # (Auto) (1.2-5.4) K/mm3 [place] # (Auto) (0.0-0.8) K/mm3 Eos # (Auto) (0.0-0.4) K/mm3 Baso # (Auto) (0.0-0.1) K/mm3 Seg Neutrophils % (40.0-70.0) % Seg Neutrophils # (1.8-7.7) K/mm3 PT (12.2-14.9) Sec. INR (0.87-1.13) APTT (24.2-36.6) Sec. Sodium (137-145) mmol/L Potassium (3.6-5.0) mmol/L Chloride (98-107) mmol/L Carbon Dioxide (22-30) mmol/L Anion Gap mmol/L BUN (9-20) mg/dL Creatinine (0.8-1.3) mg/dL Estimated GFR ml/min BUN/Creatinine Ratio % Glucose (75-100) mg/dL Calcium (8.4-10.2) mg/dL Total Bilirubin (0.1-1.2) mg/dL AST (5-40) units/L ALT (7-56) units/L Alkaline Phosphatase (35-129) units/L Ammonia 26.0 (25-60) umol/L Total Protein (6.3-8.2) g/dL Albumin (3.9-5) g/dL Albumin/Globulin Ratio % Plasma/Serum Alcohol < 0.01 (0-0.07) % - Medical Decision Making Patient is creatinine actually 1.3 today. No significant abnormality was found. It is possible that the patient has started to correct after GI bleed. Patient is guaiac positive. Patient significant drop in his hemoglobin over the last several months. Will admit the patient for observation and GI to see the patient for scoping Critical care attestation.: If time is entered above; I have spent that time in minutes in the direct care of this critically ill patient, excluding procedure time. ED Disposition Clinical Impression: GI bleed Qualifiers: GI bleed type/associated pathology: unspecified gastrointestinal hemorrhage type Qualified Code(s): K92.2 - Gastrointestinal hemorrhage, unspecified Anemia Qualifiers: Anemia type: iron deficiency Disposition: OP ADMIT IP TO THIS HOSP Is pt being admited?: Yes Does the pt Need Aspirin: No Condition: Stable Referrals: PRIMARY CARE, [Primary Care Provider] - 3-5 Days Time of Disposition: 18:25
--- NOTE | 2021-01-19 18:32 | History and Physical Report ---
History of Present Illness Chief complaint: I have been vomiting, and i have diarrhea and my stool is dark". History of present illness: 35 YO Male with ETOH Dependence, Opioid Dependence, ETOH Liver Disease complicat ed by Cirrhosis, Seizure Disorder, Chronic Pain Syndrome presents to ED for evaluation. Pt reports"I have been vomiting, and i have diarrhea and my stool is dark". Patient states that he has experienced nausea as well as multiple episodes of vomiting combined with multiple dark stools, as well as large bloody bowel movement. Pt transported to ED via private vehicle. Pt seen and evaluated in ED and found to have guaiac positive stool which is consistent with lower GI bleed. GI team consulted. Patient placed in observation status and admitted to medical floor. Patient initiated on GI bleed protocol. Patient denies fever, chills, chest pain, palpitation, productive cough, skin rash, recent ill contacts, known exposure to COVID-19. Prior admission on 12/30/2018 reviewed. All medication listed at time of admission has been reconciled. Past History Past Medical History: seizures, other (See HPI) Past Surgical History: Other (Shoulder surgery) Social history: single, alcohol abuse Family history: hypertension Medications and Allergies Allergies Allergy/AdvReac Type Severity Reaction Status Date / Time morphine AdvReac Vomiting Verified 01/19/21 16:01 Home Medications Medication Instructions Recorded Confirmed Last Taken Type Ibuprofen [Motrin 400 MG tab] 600 mg PO TID PRN #20 tablet 01/03/19 04/24/19 Unknown Rx Gabapentin [Neurontin] 600 mg PO QAM 04/24/19 04/24/19 Unknown History Gabapentin [Neurontin] 900 mg PO QHS 04/24/19 04/24/19 Unknown History Hydroxyzine HCl [hydrOXYzine] 30 mg PO TID PRN 04/24/19 04/24/19 Unknown History Sertraline [Zoloft] 100 mg PO QDAY 04/24/19 04/24/19 04/24/19 10:00 History traZODone [Desyrel] 100 mg PO QHS 04/24/19 04/24/19 Unknown History Review of Systems Constitutional: no weight loss, no weight gain Ears, nose, mouth and throat: no ear pain, no tinnitis, no decreased hearing, no nasal congestion, no nasal discharge Cardiovascular: no chest pain, no lightheadedness Respiratory: no cough, no excessive sputum, no hemoptysis Gastrointestinal: nausea, vomiting, BRBPR, no constipation, no change in bowel habits, no hematochezia, no loss of appetite, no early satiety Genitourinary Male: no hematuria, no flank pain, no discharge, no urinary frequency, no urinary hesitancy Rectal: no pain, no incontinence, no bleeding Musculoskeletal: no neck stiffness, no neck pain, no arm numbness/tingling, no low back pain, no shooting leg pain Integumentary: no pruritis, no redness, no sores, no jaundice Neurological: no head injury, no paralysis, no parathesias, no tingling, no seizures, no syncope Psychiatric: no anxiety, no change in sleep habits, no sleep disturbances, no insomnia, no hypersomnia, no change in appetite, no change in libido Endocrine: no cold intolerance, no polyphagia, no polydipsia, no polyuria Hematologic/Lymphatic: no easy bruising, no easy bleeding, no lymphadenopathy Allergic/Immunologic: no allergic rhinitis, no wheezing, no persistent infections, no anaphylaxis Exam - Constitutional Vitals: Temp Pulse Resp BP Pulse Ox 99.2 F 88 18 111/60 94 01/19/21 13:59 01/19/21 13:59 01/19/21 13:59 01/19/21 13:59 01/19/21 13:59 General appearance: Present: mild distress - EENT Eyes: Present: PERRL ENT: hearing intact, clear oral mucosa - Neck Neck: Present: supple, normal ROM - Respiratory Respiratory effort: normal Respiratory: bilateral: CTA - Cardiovascular Heart Sounds: Present: S1 & S2. Absent: rub, click - Extremities Extremities: pulses symmetrical, No edema Peripheral Pulses: within normal limits - Abdominal General gastrointestinal: Present: soft, non-tender, non-distended, normal bowel sounds Male genitourinary: Present: normal - Integumentary Integumentary: Present: clear, warm, dry - Musculoskeletal Musculoskeletal: gait normal, strength equal bilaterally - Psychiatric Psychiatric: appropriate mood/affect, intact judgment & insight - Neurologic Neurologic: CNII-XII intact, moves all extremities Results - Labs CBC & Chem 7: 01/19/21 14:35 01/19/21 14:35 Labs: Abnormal lab results 01/19/21 01/19/21 01/19/21 Range/Units 14:35 14:35 15:25 WBC 15.8 H (4.5-11.0) K/mm3 RBC 2.39 L (3.65-5.03) M/mm3 Hgb 8.0 L (11.8-15.2) gm/dl Hct 23.3 L (35.5-45.6) % MCV 98 H (84-94) fl MCH 33 H (28-32) pg [place] % (Auto) 8.0 H (0.0-7.3) % [place] # (Auto) 1.3 H (0.0-0.8) K/mm3 Seg Neutrophils # 11.0 H (1.8-7.7) K/mm3 PT 15.6 H (12.2-14.9) Sec. INR 1.19 H (0.87-1.13) Sodium 136 L (137-145) mmol/L BUN 26 H (9-20) mg/dL Assessment and Plan - Patient Problems (1) GI bleed Current Visit: Yes Status: Acute Qualifiers: GI bleed type/associated pathology: unspecified gastrointestinal hemorrhage type Qualified Code(s): K92.2 - Gastrointestinal hemorrhage, unspecified Plan to address problem: GI team consulted in ED, patient is pending endoscopic evaluation, PPI therapy, supportive care, CBC, repeat CBC in a.m. (2) Alcohol dependence Current Visit: Yes Status: Acute Plan to address problem: CIWA protocol, banana bag, thiamine, folic acid, multivitamin daily. (3) Anemia Current Visit: Yes Status: Acute Qualifiers: Anemia type: iron deficiency Plan to address problem: Hemoglobin stable, no transfusion at this time. (4) DVT prophylaxis Current Visit: Yes Status: Acute Plan to address problem: SCD to bilateral lower extremities while in bed, hold anticoagulation for now due to active GI bleed
[2021-01-19] MEDS ORDERED: ONDANSETRON 4 MG/2 ML INJ IV PRN (18:37)
[2021-01-19] MEDS ORDERED: ALBUTEROL 2.5 MG/3 ML NEBU IH PRN (18:37)
[2021-01-19] MEDS ORDERED: NON-FORMULARY EACH (Hydroxyzine Hcl [Hydroxyzine] 50 MG Tablet) PO PRN (18:38)
--- NOTE | 2021-01-19 18:46 | Emergency Department Report ---
ED General Adult HPI - General Chief complaint: Recheck/Abnormal Lab/Rx Stated complaint: ABNORMAL LAB Time Seen by Provider: 01/19/21 13:57 Source: patient Mode of arrival: Ambulatory Limitations: No Limitations - History of Present Illness Initial comments: This is a 35 year old man who presents with concern for JOI. PCP notified our office this AM of creatinine 2.9, previously normal, on recent labs. Upon discussion, patient was sent to ED for evaluation given severe JOI. Patient additionally noted to have nausea, vomiting. At time of evaluation in ED, patient notes feeling nausea, vomiting but otherwise ok. Repeat labs show creatinine 1.3. Denies other symptoms in review of systems. Severity scale (0 -10): 3 - Related Data Home Medications Medication Instructions Recorded Confirmed Last Taken Gabapentin [Neurontin] 600 mg PO QAM 04/24/19 04/24/19 Unknown Gabapentin [Neurontin] 900 mg PO QHS 04/24/19 04/24/19 Unknown Hydroxyzine HCl [hydrOXYzine] 30 mg PO TID PRN 04/24/19 04/24/19 Unknown Sertraline [Zoloft] 100 mg PO QDAY 04/24/19 04/24/19 04/24/19 10:00 traZODone [Desyrel] 100 mg PO QHS 04/24/19 04/24/19 Unknown Previous Rx's Medication Instructions Recorded Last Taken Type Ibuprofen [Motrin 400 MG tab] 600 mg PO TID PRN #20 tablet 01/03/19 Unknown Rx Allergies Allergy/AdvReac Type Severity Reaction Status Date / Time morphine AdvReac Vomiting Verified 01/19/21 16:01 ED Review of Systems ROS: Stated complaint: ABNORMAL LAB Other details as noted in HPI Comment: All other systems reviewed and negative Constitutional: no symptoms reported Eyes: as per HPI ENT: as per HPI Respiratory: no symptoms reported Cardiovascular: as per HPI Gastrointestinal: as per HPI, abdominal pain, nausea, vomiting, diarrhea Musculoskeletal: as per HPI Neurological: as per HPI ED Past Medical Hx - Past Medical History Hx Congestive Heart Failure: No Hx Diabetes: No Hx Seizures: Yes Hx Asthma: No Hx COPD: No Hx HIV: No Additional medical history: chronic back pain - Surgical History Past Surgical History?: Yes Additional Surgical History: Shoulder surgery - Social History Smoking Status: Former Smoker - Medications Home Medications: Home Medications Medication Instructions Recorded Confirmed Last Taken Type Ibuprofen [Motrin 400 MG tab] 600 mg PO TID PRN #20 tablet 01/03/19 04/24/19 Unknown Rx Gabapentin [Neurontin] 600 mg PO QAM 04/24/19 04/24/19 Unknown History Gabapentin [Neurontin] 900 mg PO QHS 04/24/19 04/24/19 Unknown History Hydroxyzine HCl [hydrOXYzine] 30 mg PO TID PRN 04/24/19 04/24/19 Unknown History Sertraline [Zoloft] 100 mg PO QDAY 04/24/19 04/24/19 04/24/19 10:00 History traZODone [Desyrel] 100 mg PO QHS 04/24/19 04/24/19 Unknown History ED Physical Exam - General Limitations: No Limitations General appearance: alert, in no apparent distress, other (pale) - Head Head exam: Present: atraumatic - Eye Eye exam: Present: normal appearance - ENT ENT exam: Present: normal exam - Respiratory Respiratory exam: Present: normal lung sounds bilaterally - Cardiovascular Cardiovascular Exam: Present: regular rate - GI/Abdominal GI/Abdominal exam: Present: soft, distended - Extremities Exam Extremities exam: Present: normal inspection - Back Exam Back exam: Present: normal inspection - Neurological Exam Neurological exam: Present: alert ED Course Vital Signs 01/19/21 01/19/21 13:51 13:59 Temperature 99.2 F 99.2 F Pulse Rate 88 Respiratory 18 18 Rate Blood Pressure 111/60 Blood Pressure 111/60 [Right] O2 Sat by Pulse 94 Oximetry ED Medical Decision Making - Lab Data Result diagrams: 01/19/21 14:35 01/19/21 14:35 - Medical Decision Making # Acute Kidney Injury: may have had rise in BUN/creatinine in setting of GI Bleed, but repeat labs shows likely baseline creatinine of 1.3 with normal e lectrolytes. Will follow peripherally while inpatient, have JOI outpatient follow up on discharge. No further renal specific workup needed # Nausea/Vomiting: management per primary, GI Critical care attestation.: If time is entered above; I have spent that time in minutes in the direct care of this critically ill patient, excluding procedure time. ED Disposition Clinical Impression: Anemia Qualifiers: Anemia type: iron deficiency GI bleed Qualifiers: GI bleed type/associated pathology: unspecified gastrointestinal hemorrhage type Qualified Code(s): K92.2 - Gastrointestinal hemorrhage, unspecified Disposition: DC-09 OP ADMIT IP TO THIS HOSP Is pt being admited?: Yes Condition: Stable Referrals: PRIMARY CARE, [Primary Care Provider] - 3-5 Days
[2021-01-19] MEDS ORDERED: THIAMINE 100 MG, FOLIC ACID 1 MG, MULTIPLE VITAMIN INJ, ADULT 10 ML in SODIUM CHLORIDE ... IV ONE (19:20)
[2021-01-19 19:34] LABS: Bilirubin,Urine NEG (Negative); Blood,Urine NEG (Negative); Color,Urine Yellow (Yellow); Protein,Urine <15 mg/dL mg/dL (Negative); RBC,Urine < 1.0 /HPF (0.0-6.0)
[2021-01-19] MEDS ORDERED: hydrOXYzine HCL 10 MG TAB PO PRN (19:36)
[2021-01-19] MEDS: GABAPENTIN 300 MG CAP PO SCH (21:44)
[2021-01-19] MEDS: traZODone 100 MG TAB PO SCH (21:45)
[2021-01-19] MEDS: LORazepam 2 MG/ML VIAL IV PRN (21:45)
[2021-01-20] MEDS: PANTOPRAZOLE 40 MG INJ IV SCH ×2 (03:45→15:12)
[2021-01-20 08:04] LABS: Basophils % (Auto) 0.3 % (0.0-1.8); Eosinophils # (Auto) 0.1 K/mm3 (0.0-0.4); Eosinophils % (Auto) 2.3 % (0.0-4.3); Hemoglobin 6.3 gm/dl (11.8-15.2); Lymphocytes # (Auto) 1.5 K/mm3 (1.2-5.4); Lymphocytes % (Auto) 24.6 % (13.4-35.0); Mean Corpuscular HGB Conc 36 % (32-34); Mean Corpuscular Volume 99 fl (84-94); Monocytes # (Auto) 0.6 K/mm3 (0.0-0.8); Monocytes % (Auto) 9.2 % (0.0-7.3); Platelet Count 105 K/mm3 (140-440); Red Blood Count 1.79 M/mm3 (3.65-5.03); Red Cell Distribution Width 13.6 % (13.2-15.2)
[2021-01-20 08:18] LABS: Hematocrit 17.6 % (35.5-45.6)
[2021-01-20 08:22] LABS: Alanine Aminotransferase 18 units/L (7-56); Albumin 3.5 g/dL (3.9-5); BUN/Creatinine Ratio 15; Blood Urea Nitrogen 17 mg/dL (9-20); Hemolysis Index 1
[2021-01-20] MEDS ORDERED: SODIUM CHLORIDE 0.9% 500 ML 500 ML IV NR (08:41)
[2021-01-20] MEDS: SERTRALINE 100 MG TAB PO SCH (09:36)
[2021-01-20] MEDS: MULTIVITAMINS ,THERAPEUTIC TAB PO SCH (09:36)
[2021-01-20] MEDS: FOLIC ACID 1 MG TAB PO SCH (09:37)
[2021-01-20] MEDS: GABAPENTIN 300 MG CAP PO SCH ×2 (09:37→21:49)
[2021-01-20] MEDS ORDERED: THIAMINE 100 MG TAB PO SCH (10:00)
[2021-01-20] MEDS ORDERED: NON-FORMULARY EACH (Gabapentin [Neurontin] 800 MG Tablet) PO SCH (10:00)
[2021-01-20 10:07] LABS: Hemoglobin 6.5 gm/dl (11.8-15.2)
--- NOTE | 2021-01-20 12:22 | Progress Note ---
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 Pt reports"I have been vomiting, and i have diarrhea and my stool is dark". Patient states that he has experienced nausea as well as mult iple episodes of vomiting combined with multiple dark stools, as well as large bloody bowel movement. Pt transported to ED via private vehicle. Pt seen and evaluated in ED and found to have guaiac positive stool which is consistent with lower GI bleed. GI team consulted. Patient placed in observation status and admitted to medical floor. Patient initiated on GI bleed protocol. Patient denies fever, chills, chest pain, palpitation, productive cough, skin rash, recent ill contacts, known exposure to COVID-19. Prior admission on 12/30/2018 reviewed. All medication listed at time of admission has been reconciled. 01/20: Patient seems unsure about a lot of information. We will continue CIWA protocol as recommended. We will also obtain GI evaluation as hemoglobin drop ped this morning. Prior noted renal function abnormalities improved. Results here did not indicate any abnormal renal function. We will also try to establish a communication with family as patient does have a history of seizure disorder possible cirrhosis chronic pain syndrome to obtain full thorough medical evaluation and history of this patient. Will transfuse 1 unit packed red blood cell while awaiting GI work-up. Not quite clear why the patient went to the director of admissions office in the first place. But I am sure we will get this information this time progress (1) GI bleed Current Visit: Yes Status: Acute Qualifiers: GI bleed type/associated pathology: unspecified gastrointestinal hemorrhage type Qualified Code(s): K92.2 - Gastrointestinal hemorrhage, unspecified Plan to address problem: GI team consulted in ED, patient is pending endoscopic evaluation, PPI therapy, supportive care, CBC, repeat CBC in a.m. (2) Alcohol dependence Current Visit: Yes Status: Acute Plan to address problem: CIWA protocol, banana bag, thiamine, folic acid, multivitamin daily. (3) Acute blood loss anemia Current Visit: Yes Status: Acute Qualifiers: Anemia type: iron deficiency Plan to address problem: Hemoglobin stable, no transfusion at this time. (4) right-sided foot drop Chronic per the patient PT OT evaluation and treat Fall precaution (5) chronic pain syndrome (6) DVT prophylaxis Current Visit: Yes Status: Acute Plan to address problem: SCD to bilateral lower extremities while in bed, hold anticoagulation for now due to active GI bleed History Interval history: Patient seen and examined, reports generalized body pain and chronic right foot drop for which he is on Rehab. Hospitalist Physical - Physical exam Narrative exam: General appearance: Present: no distress. pale appearing - EENT Eyes: Present: PERRL ENT: hearing intact, clear oral mucosa - Neck Neck: Present: supple, normal ROM - Respiratory Respiratory effort: normal Respiratory: bilateral: CTA - Cardiovascular Heart Sounds: Present: S1 & S2. Absent: rub, click - Extremities Extremities: pulses symmetrical, No edema Peripheral Pulses: within normal limits - Abdominal General gastrointestinal: Present: soft, non-tender, non-distended, normal bowel sounds Male genitourinary: Present: normal - Integumentary Integumentary: Present: clear, warm, dry - Musculoskeletal Musculoskeletal: gait abnormal, right foot drop - Psychiatric Psychiatric: appropriate mood/affect, intact judgment & insight - Neurologic Neurologic: CNII-XII intact, moves all extremities - Constitutional Vitals: Temp Pulse Resp BP Pulse Ox 98.7 F 82 18 105/51 95 01/20/21 11:19 01/20/21 11:19 01/20/21 11:19 01/20/21 11:19 01/20/21 11:19 General appearance: Present: mild distress Results - Labs CBC & Chem 7: 01/20/21 09:42 01/20/21 07:38 Labs: Laboratory Last Values WBC 6.2 K/mm3 (4.5-11.0) 01/20/21 07:38 RBC 1.79 M/mm3 (3.65-5.03) L 01/20/21 07:38 Hgb 6.5 gm/dl (11.8-15.2) L 01/20/21 09:42 Hct 18.0 % (35.5-45.6) L* 01/20/21 09:42 MCV 99 fl (84-94) H 01/20/21 07:38 MCH 35 pg (28-32) H 01/20/21 07:38 MCHC 36 % (32-34) H 01/20/21 07:38 RDW 13.6 % (13.2-15.2) 01/20/21 07:38 Plt Count 105 K/mm3 (140-440) L 01/20/21 07:38 Lymph % (Auto) 24.6 % (13.4-35.0) 01/20/21 07:38 [place]comb % (Auto) 9.2 % (0.0-7.3) H 01/20/21 07:38 Eos % (Auto) 2.3 % (0.0-4.3) 01/20/21 07:38 Baso % (Auto) 0.3 % (0.0-1.8) 01/20/21 07:38 Lymph # (Auto) 1.5 K/mm3 (1.2-5.4) 01/20/21 07:38 [place]comb # (Auto) 0.6 K/mm3 (0.0-0.8) 01/20/21 07:38 Eos # (Auto) 0.1 K/mm3 (0.0-0.4) 01/20/21 07:38 Baso # (Auto) 0.0 K/mm3 (0.0-0.1) 01/20/21 07:38 Seg Neutrophils % 63.6 % (40.0-70.0) 01/20/21 07:38 Seg Neutrophils # 3.9 K/mm3 (1.8-7.7) 01/20/21 07:38 PT 15.6 Sec. (12.2-14.9) H 01/19/21 15:25 INR 1.19 (0.87-1.13) H 01/19/21 15:25 APTT 31.7 Sec. (24.2-36.6) 01/19/21 15:25 Sodium 137 mmol/L (137-145) 01/20/21 07:38 Potassium 3.9 mmol/L (3.6-5.0) 01/20/21 07:38 Chloride 105.2 mmol/L (98-107) 01/20/21 07:38 Carbon Dioxide 24 mmol/L (22-30) 01/20/21 07:38 Anion Gap 12 mmol/L 01/20/21 07:38 BUN 17 mg/dL (9-20) 01/20/21 07:38 Creatinine 1.1 mg/dL (0.8-1.3) 01/20/21 07:38 Estimated GFR > 60 ml/min 01/20/21 07:38 BUN/Creatinine Ratio 15 % 01/20/21 07:38 Glucose 116 mg/dL (75-100) H 01/20/21 07:38 Calcium 9.0 mg/dL (8.4-10.2) 01/20/21 07:38 Total Bilirubin 0.70 mg/dL (0.1-1.2) 01/20/21 07:38 AST 29 units/L (5-40) 01/20/21 07:38 ALT 18 units/L (7-56) 01/20/21 07:38 Alkaline Phosphatase 76 units/L (35-129) 01/20/21 07:38 Ammonia 26.0 umol/L (25-60) 01/19/21 15:29 Total Protein 5.9 g/dL (6.3-8.2) L 01/20/21 07:38 Albumin 3.5 g/dL (3.9-5) L 01/20/21 07:38 Albumin/Globulin Ratio 1.5 % 01/20/21 07:38 Urine Color Yellow (Yellow) 01/19/21 Unknown Urine Turbidity Clear (Clear) 01/19/21 Unknown Urine pH 6.0 (5.0-7.0) 01/19/21 Unknown Ur Specific [place] 1.015 (1.003-1.030) 01/19/21 Unknown Urine Protein <15 mg/dl mg/dL (Negative) 01/19/21 Unknown Urine Glucose (UA) Neg mg/dL (Negative) 01/19/21 Unknown Urine Ketones Neg mg/dL (Negative) 01/19/21 Unknown Urine Blood Neg (Negative) 01/19/21 Unknown Urine Nitrite Neg (Negative) 01/19/21 Unknown Urine Bilirubin Neg (Negative) 01/19/21 Unknown Urine Urobilinogen 4.0 mg/dL (<2.0) 01/19/21 Unknown Ur Leukocyte Esterase Neg (Negative) 01/19/21 Unknown Urine WBC (Auto) 1.0 /HPF (0.0-6.0) 01/19/21 Unknown Urine RBC (Auto) < 1.0 /HPF (0.0-6.0) 01/19/21 Unknown Plasma/Serum Alcohol < 0.01 % (0-0.07) 01/19/21 15:25 Blood Type O POSITIVE 01/20/21 09:42 Antibody Screen Negative 01/20/21 09:42 Crossmatch See Detail 01/20/21 09:42 Guardado/IV: Voiding Method Urinal Active Medications - Current Medications Current Medications: Generic Name Dose Route Start Last Admin Trade Name Freq PRN Reason Stop Dose Admin Acetaminophen 650 mg 01/19/21 18:37 Acetaminophen 325 Mg Tab PO Q4H PRN Pain MILD(1-3)/Fever >100.5/PONCE Albuterol 2.5 mg 01/19/21 18:37 Albuterol 2.5 Mg/3 Ml Nebu IH Q4HRT PRN Shortness Of Breath Folic Acid 1 mg 01/20/21 10:00 01/20/21 09:37 Folic Acid 1 Mg Tab PO 1 mg QDAY MYNOR Administration Gabapentin 900 mg 01/19/21 22:00 01/19/21 21:44 Gabapentin 300 Mg Cap PO 900 mg QHS MYNOR Administration Gabapentin 600 mg 01/20/21 10:00 01/20/21 09:37 Gabapentin 300 Mg Cap PO 600 mg QAM MYNOR Administration Hydroxyzine HCl 30 mg 01/19/21 19:36 Hydroxyzine Hcl 10 Mg Tab PO TID PRN Anxiety Sodium Chloride 500 mls @ 0 mls/hr 01/20/21 08:41 Nacl 0.9% 500 Ml IV 01/21/21 08:40 ONCE NR As Directed Lorazepam 2 mg 01/19/21 19:20 01/19/21 21:45 Lorazepam 2 Mg/Ml Vial IV 2 mg Q1HR PRN Administration Vel 8-15 Multivitamins 1 each 01/20/21 10:00 01/20/21 09:36 Multivitamins ,Therapeutic Tab PO 1 each QDAY MYNOR Administration Ondansetron HCl 4 mg 01/19/21 18:37 Ondansetron 4 Mg/2 Ml Inj IV Q8H PRN Nausea And Vomiting Pantoprazole Sodium 40 mg 01/20/21 04:00 01/20/21 03:45 Pantoprazole 40 Mg Inj IV 40 mg Q12H MYNOR Administration Sertraline HCl 100 mg 01/20/21 10:00 01/20/21 09:36 Sertraline 100 Mg Tab PO 100 mg QDAY MYNOR Administration Sodium Chloride 10 ml 01/19/21 22:00 01/20/21 09:37 Sodium Chloride 0.9% 10 Ml Flush Syringe IV 10 ml BID MYNOR Administration Sodium Chloride 10 ml 01/19/21 18:37 Sodium Chloride 0.9% 10 Ml Flush Syringe IV PRN PRN LINE FLUSH Thiamine HCl 100 mg 01/20/21 10:00 01/20/21 09:37 Thiamine 100 Mg Tab PO 100 mg QDAY MYNOR Administration Trazodone HCl 100 mg 01/19/21 22:00 01/19/21 21:45 Trazodone 100 Mg Tab PO 100 mg QHS MYNOR Administration
[2021-01-20] MEDS ORDERED: WATER FOR IRRIG STERILE 1,000 ML BOTTLE ONE (12:50)
[2021-01-20] MEDS ORDERED: LIDOCAINE MPF (2%) 20 MG/1 ML VIAL 5 ML ONE (12:55)
[2021-01-20] MEDS ORDERED: ONDANSETRON 4 MG/2 ML INJ ONE (12:55)
[2021-01-20] MEDS ORDERED: propofoL 200 MG/20 ML VIAL IV ONE (12:56)
[2021-01-20] MEDS ORDERED: WATER FOR IRRIG STERILE 250 ML BOTTLE IR ONE (12:56)
[2021-01-20] MEDS ORDERED: SODIUM CHLORIDE 0.9% 1000 ML 1,000 ML ONE (12:56)
[2021-01-20] MEDS ORDERED: fentaNYL 100 MCG/2 ML INJ ONE (12:56)
--- NOTE | 2021-01-20 13:01 | Gastroenterology Consultation ---
History of Present Illness - Reason for Consult Consult date: 01/20/21 GI Bleed Requesting physician: HARSH WEBER - History of Present Illness Is a pleasant 35-year-old gentleman Seizure Disorder, Chronic Pain Syndrome presents to ED for evaluation for GI bleed Patient reports for the last 3 days having black stools as well as a few episodes of black emesis Patient reports mild cramping abdominal pain associated with the melena however he denies any current abdominal pain Patient denies significant euic-fas-lmydbij pain medication and denies any alcohol use in the last few months Patient does report feeling weak Other main complaint is his leg pain which he reports is severe and chronic 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 Patient last scoped by our group nearly 3 years ago findings as below Date: 06/26/18 13:36 Initialization Date: 06/26/18 13:36 Pre-op diagnosis: anemia Post-op diagnosis: same Findings: EGD: hiatal hernia - mild gastritis (bx's) - negative other Colonoscopy: medium internal hemorrhoids - negative other Procedure: EGD/colonoscopy Obtained/updated/reviewed patient's current medications Past History Past Medical History: seizures, other (See HPI) Past Surgical History: Other (Shoulder surgery) Social history: single, alcohol abuse Family history: hypertension Medications and Allergies Allergies Allergy/AdvReac Type Severity Reaction Status Date / Time morphine AdvReac Vomiting Verified 01/19/21 16:01 Home Medications Medication Instructions Recorded Confirmed Last Taken Type Ibuprofen [Motrin 400 MG tab] 600 mg PO TID PRN #20 tablet 01/03/19 01/20/21 Unknown Rx Gabapentin [Neurontin] 600 mg PO QAM 04/24/19 01/20/21 Unknown History Gabapentin [Neurontin] 900 mg PO QHS 04/24/19 01/20/21 Unknown History Hydroxyzine HCl [hydrOXYzine] 30 mg PO TID PRN 04/24/19 01/20/21 Unknown History Sertraline [Zoloft] 100 mg PO QDAY 04/24/19 01/20/21 04/24/19 10:00 History traZODone [Desyrel] 100 mg PO QHS 04/24/19 01/20/21 Unknown History Active Meds: Active Medications Acetaminophen (Acetaminophen 325 Mg Tab) 650 mg PO Q4H PRN PRN Reason: Pain MILD(1-3)/Fever >100.5/PONCE Albuterol (Albuterol 2.5 Mg/3 Ml Nebu) 2.5 mg IH Q4HRT PRN PRN Reason: Shortness Of Breath Folic Acid (Folic Acid 1 Mg Tab) 1 mg PO QDAY [facility] [place] Last Admin: 01/20/21 09:37 Dose: 1 mg Documented by: Gabapentin (Gabapentin 300 Mg Cap) 900 mg PO QHS [facility] [place] Last Admin: 01/19/21 21:44 Dose: 900 mg Documented by: Gabapentin (Gabapentin 300 Mg Cap) 600 mg PO QAM [facility] [place] Last Admin: 01/20/21 09:37 Dose: 600 mg Documented by: Hydroxyzine HCl (Hydroxyzine Hcl 10 Mg Tab) 30 mg PO TID PRN PRN Reason: Anxiety Sodium Chloride (Nacl 0.9% 500 Ml) 500 mls @ 0 mls/hr IV ONCE NR Stop: 01/21/21 08:40 Lorazepam (Lorazepam 2 Mg/Ml Vial) 2 mg IV Q1HR PRN PRN Reason: JOSEPH-Gerry 8- Last Admin: 01/19/21 21:45 Dose: 2 mg Documented by: Multivitamins (Multivitamins ,Therapeutic Tab) 1 each PO QDAY [facility] [place] Last Admin: 01/20/21 09:36 Dose: 1 each Documented by: Ondansetron HCl (Ondansetron 4 Mg/2 Ml Inj) 4 mg IV Q8H PRN PRN Reason: Nausea And Vomiting Pantoprazole Sodium (Pantoprazole 40 Mg Inj) 40 mg IV Q12H [facility] [place] Last Admin: 01/20/21 03:45 Dose: 40 mg Documented by: Sertraline HCl (Sertraline 100 Mg Tab) 100 mg PO QDAY [facility] [place] Last Admin: 01/20/21 09:36 Dose: 100 mg Documented by: Sodium Chloride (Sodium Chloride 0.9% 10 Ml Flush Syringe) 10 ml IV BID [facility] [place] Last Admin: 01/20/21 09:37 Dose: 10 ml Documented by: Sodium Chloride (Sodium Chloride 0.9% 10 Ml Flush Syringe) 10 ml IV PRN PRN PRN Reason: LINE FLUSH Thiamine HCl (Thiamine 100 Mg Tab) 100 mg PO QDAY [facility] [place] Last Admin: 01/20/21 09:37 Dose: 100 mg Documented by: Trazodone HCl (Trazodone 100 Mg Tab) 100 mg PO QHS [facility] [place] Last Admin: 01/19/21 21:45 Dose: 100 mg Documented by: Review of Systems - Review of Systems All systems: negative (10 Systems reviewed and negative except as mentioned above in the history of present illness) Exam - Constitutional Vital Signs: Temp Pulse Resp BP Pulse Ox 98.5 F 86 20 106/46 96 01/20/21 12:21 01/20/21 12:21 01/20/21 12:21 01/20/21 12:21 01/20/21 12:21 General appearance: no acute distress - EENT Eyes: EOM intact ENT: hearing intact - Neck Neck: supple - Respiratory Respiratory effort: normal - Cardiovascular Rhythm: regular - Gastrointestinal General gastrointestinal: Present: soft, non-tender - Integumentary Integumentary: Present: warm, dry - Neurologic Neurological: alert and oriented x3 - Psychiatric Psychiatric: appropriate mood/affect - Labs CBC & Chem 7: 01/20/21 09:42 01/20/21 07:38 Lab Results: Laboratory Results - last 24 hr 01/19/21 01/19/21 01/19/21 14:35 14:35 15:25 WBC 15.8 H RBC 2.39 L Hgb 8.0 L Hct 23.3 L MCV 98 H MCH 33 H MCHC 34 RDW 13.7 Plt Count 216 Lymph % (Auto) 20.3 [place] % (Auto) 8.0 H Eos % (Auto) 1.7 Baso % (Auto) 0.4 Lymph # (Auto) 3.2 [place] # (Auto) 1.3 H Eos # (Auto) 0.3 Baso # (Auto) 0.1 Seg Neutrophils % 69.6 Seg Neutrophils # 11.0 H PT 15.6 H INR 1.19 H APTT 31.7 Sodium 136 L Potassium 4.3 Chloride 99.1 Carbon Dioxide 23 Anion Gap 18 BUN 26 H Creatinine 1.3 Estimated GFR > 60 BUN/Creatinine Ratio 20 Glucose 86 Calcium 9.3 Total Bilirubin 1.00 AST 34 ALT 21 Alkaline Phosphatase 77 Ammonia Total Protein 7.2 Albumin 4.2 Albumin/Globulin Ratio 1.4 Urine Color Urine Turbidity Urine pH Ur Specific [place] Urine Protein Urine Glucose (UA) Urine Ketones Urine Blood Urine Nitrite Urine Bilirubin Urine Urobilinogen Ur Leukocyte Esterase Urine WBC (Auto) Urine RBC (Auto) Plasma/Serum Alcohol Blood Type Antibody Screen Crossmatch 01/19/21 01/19/21 01/19/21 15:25 15:29 Unknown WBC RBC Hgb Hct MCV MCH MCHC RDW Plt Count Lymph % (Auto) [place] % (Auto) Eos % (Auto) Baso % (Auto) Lymph # (Auto) [place] # (Auto) Eos # (Auto) Baso # (Auto) Seg Neutrophils % Seg Neutrophils # PT INR APTT Sodium Potassium Chloride Carbon Dioxide Anion Gap BUN Creatinine Estimated GFR BUN/Creatinine Ratio Glucose Calcium Total Bilirubin AST ALT Alkaline Phosphatase Ammonia 26.0 Total Protein Albumin Albumin/Globulin Ratio Urine Color Yellow Urine Turbidity Clear Urine pH 6.0 Ur Specific [place] 1.015 Urine Protein <15 mg/dl Urine Glucose (UA) Neg Urine Ketones Neg Urine Blood Neg Urine Nitrite Neg Urine Bilirubin Neg Urine Urobilinogen 4.0 Ur Leukocyte Esterase Neg Urine WBC (Auto) 1.0 Urine RBC (Auto) < 1.0 Plasma/Serum Alcohol < 0.01 Blood Type Antibody Screen Crossmatch 01/20/21 01/20/21 01/20/21 07:38 07:38 09:42 WBC 6.2 RBC 1.79 L Hgb 6.3 L 6.5 L Hct 17.6 L* 18.0 L* MCV 99 H MCH 35 H MCHC 36 H RDW 13.6 Plt Count 105 L Lymph % (Auto) 24.6 [place] % (Auto) 9.2 H Eos % (Auto) 2.3 Baso % (Auto) 0.3 Lymph # (Auto) 1.5 [place] # (Auto) 0.6 Eos # (Auto) 0.1 Baso # (Auto) 0.0 Seg Neutrophils % 63.6 Seg Neutrophils # 3.9 PT INR APTT Sodium 137 Potassium 3.9 Chloride 105.2 Carbon Dioxide 24 Anion Gap 12 BUN 17 Creatinine 1.1 Estimated GFR > 60 BUN/Creatinine Ratio 15 Glucose 116 H Calcium 9.0 Total Bilirubin 0.70 AST 29 ALT 18 Alkaline Phosphatase 76 Ammonia Total Protein 5.9 L Albumin 3.5 L Albumin/Globulin Ratio 1.5 Urine Color Urine Turbidity Urine pH Ur Specific [place] Urine Protein Urine Glucose (UA) Urine Ketones Urine Blood Urine Nitrite Urine Bilirubin Urine Urobilinogen Ur Leukocyte Esterase Urine WBC (Auto) Urine RBC (Auto) Plasma/Serum Alcohol Blood Type Antibody Screen Crossmatch 01/20/21 09:42 WBC RBC Hgb Hct MCV MCH MCHC RDW Plt Count Lymph % (Auto) [place] % (Auto) Eos % (Auto) Baso % (Auto) Lymph # (Auto) [place] # (Auto) Eos # (Auto) Baso # (Auto) Seg Neutrophils % Seg Neutrophils # PT INR APTT Sodium Potassium Chloride Carbon Dioxide Anion Gap BUN Creatinine Estimated GFR BUN/Creatinine Ratio Glucose Calcium Total Bilirubin AST ALT Alkaline Phosphatase Ammonia Total Protein Albumin Albumin/Globulin Ratio Urine Color Urine Turbidity Urine pH Ur Specific [place] Urine Protein Urine Glucose (UA) Urine Ketones Urine Blood Urine Nitrite Urine Bilirubin Urine Urobilinogen Ur Leukocyte Esterase Urine WBC (Auto) Urine RBC (Auto) Plasma/Serum Alcohol Blood Type O POSITIVE Antibody Screen Negative Crossmatch See Detail Assessment and Plan Presentation consistent with acute upper GI bleed therefore will proceed with EGD, continue present above inhibitor in the meantime Discussion: Differential diagnosis includes gastric ulcer disease AVMs variceal bleed etc. Patient does not appear to be cirrhotic however based upon labs therefore no need to initiate octreotide drip, continue Protonix and final recommendations based upon EGD results - Patient Problems (1) Melena Current Visit: Yes Status: Acute (2) Alcohol dependence Current Visit: Yes Status: Acute (3) GI bleed Current Visit: Yes Status: Acute Qualifiers: GI bleed type/associated pathology: unspecified gastrointestinal hemorrhage type Qualified Code(s): K92.2 - Gastrointestinal hemorrhage, unspecified
--- NOTE | 2021-01-20 13:23 | Operative Report ---
Operative Report Operative Report: DOS: 01/20/21 SURGEON: Collin Morrison MD EGD WITH BIOPSY REPORT PREOPERATIVE DIAGNOSIS and POSTOPERATIVE DIAGNOSIS: Melena, GI bleed ESTIMATED BLOOD LOSS: Minimal DESCRIPTION OF PROCEDURE: A high-resolution EGD scope was passed through the oropharynx, esophagus, stomach, and second portion of duodenum. The scope was carefully withdrawn. Retroflexion was performed in the stomach. At the end of the procedure, the scope was cleaned using normal technique. Vital signs monitored continuously throughout. SEDATION: Provided by Anesthesiology Services. COMPLICATIONS: None. FINDINGS: * No gross lesions in the entire examined duodenum * Multiple gastric ulcers in the gastric antrum and incisura ranging in size from less than 1 mm to the largest one being 4 mm in the prepyloric antrum. All clean based with no active bleeding. Biopsies were taken to rule out H. Pylori infection. A total of 5 biopsies were taken, 2 from the antrum, 1 from the incisura, 2 from the body. * Z-line regular at 40 cm from incisors * Remainder of exam unremarkable RECOMMENDATIONS: * Patient with multiple gastric ulcers as the etiology of the GI bleed, though there was no active bleeding at the time of the procedure. Therefore, continue with twice daily proton pump inhibitor and trend hemoglobin which I anticipate will stabilize tomorrow * If after 24 hours patient's hemoglobin is fidencio and there is no clinical bleeding he can be discharged on pantoprazole 40 mg twice daily but will require close outpatient follow-up as well as repeat EGD and 6 weeks to ensure healing of the ulcers * We will follow-up pathology results
--- NOTE | 2021-01-20 15:39 | Anesthesia Consultation ---
Anesthesia Consult and Med Hx Date of service: 01/20/21 - Airway Anesthetic Teeth Evaluation: Poor ROM Head & Neck: Adequate Mental/Hyoid Distance: Adequate Mallampati Class: Class III Intubation Access Assessment: Possibly Difficult - Pre-Operative Health Status ASA Pre-Surgery Classification: ASA3 Proposed Anesthetic Plan: MAC - Pulmonary Hx Respiratory Symptoms: No - Cardiovascular System Hx Hypertension: No - Central Nervous System Hx Seizures: Yes - Endocrine Hx Renal Disease: Yes (JOI) Hx Cirrhosis: Yes (2/2 EtOH) - Hematic Hx Anemia: Yes - Other Systems Hx Alcohol Use: Yes Hx Substance Use: Yes (chronic pain/opioid dependence) Hx Obesity: Yes
--- NOTE | 2021-01-20 15:40 | Anesthesia Day of Surgery ---
Anesthesia Day of Surgery - Day of Surgery Patient Examined: Yes Patient H&P Reviewed: Yes Patient is NPO: Yes
--- NOTE | 2021-01-20 15:41 | Post Anesthesia Evaluation ---
- Post Anesthesia Evaluation Patient Participated: Yes Airway Patent: Yes Stable Respiratory Function: Yes Nausea/Vomiting: No Temp > 96.8F: Yes Pain Manageable: Yes Adequeate Hydration: Yes Anesthesia Complications: No
[2021-01-20] MEDS: traZODone 100 MG TAB PO SCH (21:49)
[2021-01-20] MEDS: ACETAMINOPHEN 325 MG TAB PO PRN (23:09)
[2021-01-20 23:21] LABS: Hematocrit 21.2 % (35.5-45.6); Hemoglobin 7.4 gm/dl (11.8-15.2)
[2021-01-21] MEDS: PANTOPRAZOLE 40 MG INJ IV SCH ×2 (04:03→15:19)
[2021-01-21 06:15] LABS: Hematocrit 20.7 % (35.5-45.6); Hemoglobin 7.3 gm/dl (11.8-15.2); Mean Corpuscular HGB Conc 35 % (32-34); Mean Corpuscular Volume 97 fl (84-94); Platelet Count 95 K/mm3 (140-440); Red Blood Count 2.13 M/mm3 (3.65-5.03); Red Cell Distribution Width 15.1 % (13.2-15.2)
[2021-01-21 06:36] LABS: BUN/Creatinine Ratio 9; Blood Urea Nitrogen 9 mg/dL (9-20); Calcium 8.8 mg/dL (8.4-10.2); Hemolysis Index 2
--- NOTE | 2021-01-21 07:44 | Gastroenterology Progress Note ---
Assessment and Plan GI bleeding due to gastric ulcers Bleeding is clinically stopped and hemoglobin stabilized Continue twice daily PPI Patient will need to follow-up with us as an outpatient in 2 to 4 weeks and will require repeat upper endoscopy in 6 to 8 weeks to ensure complete healing of the ulcers I reviewed with him the need to avoid NSAIDs From GI standpoint patient may be discharged with GI follow-up as above, GI will sign off, please call back if we can be of any further assistance - Patient Problems (1) Melena Current Visit: Yes Status: Acute (2) Alcohol dependence Current Visit: Yes Status: Acute (3) GI bleed Current Visit: Yes Status: Acute Qualifiers: GI bleed type/associated pathology: unspecified gastrointestinal hemorrhage type Qualified Code(s): K92.2 - Gastrointestinal hemorrhage, unspecified (4) Gastric ulcer Current Visit: Yes Status: Acute Subjective Date of service: 01/21/21 Principal diagnosis: GI Bleed Interval history: Patient continues complain about his chronic leg pain. He reports his stomach is starting to improve just mild to moderate. Denies any upper gastrointestinal bleeding since endoscopy yesterday EGD 01/20 FINDINGS: * No gross lesions in the entire examined duodenum * Multiple gastric ulcers in the gastric antrum and incisura ranging in size from less than 1 mm to the largest one being 4 mm in the prepyloric antrum. All clean based with no active bleeding. Biopsies were taken to rule out H. Pylori infection. A total of 5 biopsies were taken, 2 from the antrum, 1 from the incisura, 2 from the body. * Z-line regular at 40 cm from incisors * Remainder of exam unremarkable Objective - Constitutional Vitals: Temp Pulse Resp BP Pulse Ox 98.8 F 77 18 96/44 96 01/21/21 04:31 01/21/21 04:31 01/21/21 04:31 01/21/21 04:31 01/21/21 04:31 General appearance: no acute distress - EENT Eyes: EOM intact - Respiratory Respiratory effort: normal - Gastrointestinal General gastrointestinal: Present: soft, tender, normal bowel sounds - Labs CBC & Chem 7: 01/21/21 05:53 01/21/21 05:53 Labs: Laboratory Results - last 24 hr 01/20/21 01/20/21 01/20/21 07:38 07:38 09:42 WBC 6.2 RBC 1.79 L Hgb 6.3 L 6.5 L Hct 17.6 L* 18.0 L* MCV 99 H MCH 35 H MCHC 36 H RDW 13.6 Plt Count 105 L Lymph % (Auto) 24.6 Gem % (Auto) 9.2 H Eos % (Auto) 2.3 Baso % (Auto) 0.3 Lymph # (Auto) 1.5 Gem # (Auto) 0.6 Eos # (Auto) 0.1 Baso # (Auto) 0.0 Seg Neutrophils % 63.6 Seg Neutrophils # 3.9 Sodium 137 Potassium 3.9 Chloride 105.2 Carbon Dioxide 24 Anion Gap 12 BUN 17 Creatinine 1.1 Estimated GFR > 60 BUN/Creatinine Ratio 15 Glucose 116 H Calcium 9.0 Total Bilirubin 0.70 AST 29 ALT 18 Alkaline Phosphatase 76 Total Protein 5.9 L Albumin 3.5 L Albumin/Globulin Ratio 1.5 Blood Type Antibody Screen Crossmatch 01/20/21 01/20/21 01/21/21 09:42 22:51 05:53 WBC 4.9 RBC 2.13 L Hgb 7.4 L 7.3 L Hct 21.2 L 20.7 L MCV 97 H MCH 34 H MCHC 35 H RDW 15.1 Plt Count 95 L Lymph % (Auto) Gem % (Auto) Eos % (Auto) Baso % (Auto) Lymph # (Auto) Gem # (Auto) Eos # (Auto) Baso # (Auto) Seg Neutrophils % Seg Neutrophils # Sodium Potassium Chloride Carbon Dioxide Anion Gap BUN Creatinine Estimated GFR BUN/Creatinine Ratio Glucose Calcium Total Bilirubin AST ALT Alkaline Phosphatase Total Protein Albumin Albumin/Globulin Ratio Blood Type O POSITIVE Antibody Screen Negative Crossmatch See Detail 01/21/21 05:53 WBC RBC Hgb Hct MCV MCH MCHC RDW Plt Count Lymph % (Auto) Gem % (Auto) Eos % (Auto) Baso % (Auto) Lymph # (Auto) Gem # (Auto) Eos # (Auto) Baso # (Auto) Seg Neutrophils % Seg Neutrophils # Sodium 139 Potassium 3.9 Chloride 106.7 Carbon Dioxide 23 Anion Gap 13 BUN 9 Creatinine 1.0 Estimated GFR > 60 BUN/Creatinine Ratio 9 Glucose 96 Calcium 8.8 Total Bilirubin AST ALT Alkaline Phosphatase Total Protein Albumin Albumin/Globulin Ratio Blood Type Antibody Screen Crossmatch
[2021-01-21] MEDS ORDERED: THIAMINE 100 MG in SODIUM CHLORIDE 0.9% 50 ML IV ONE (08:30)
[2021-01-21] MEDS: ACETAMINOPHEN 325 MG TAB PO PRN ×2 (09:39→15:15)
[2021-01-21] MEDS: FOLIC ACID 1 MG TAB PO SCH (09:39)
[2021-01-21] MEDS: GABAPENTIN 300 MG CAP PO SCH ×2 (09:39→22:11)
[2021-01-21] MEDS: SERTRALINE 100 MG TAB PO SCH (09:40)
[2021-01-21] MEDS: MULTIVITAMINS ,THERAPEUTIC TAB PO SCH (09:40)
[2021-01-21] MEDS ORDERED: LACTULOSE 20 GM/30 ML ORAL LIQD PO PRN (11:28)
--- NOTE | 2021-01-21 11:32 | Consultation ---
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 Pt reports"I have been vomiting, and i have diarrhea and my stool is dark". Patient states that he has experienced nausea as well as multiple episodes of vomiting combined with multiple dark stools, as well as large bloody bowel movement. Pt transported to ED via private vehicle. Pt seen and evaluated in ED and found to have guaiac positive stool which is consistent with lower GI bleed. GI team consulted. Patient placed in observation status and admitted to medical floor. Patient initiated on GI bleed protocol. Patient denies fever, chills, chest pain, palpitation, productive cough, skin rash, recent ill contacts, known exposure to COVID-19. Prior admission on 12/30/2018 reviewed. The patient reports right lower extremity weakness, there is back pain, no weakness in the left lower extremity no upper extremity complains . Past History Past Medical History: seizures, other (See HPI) Past Surgical History: Other (Shoulder surgery) Social history: single, alcohol abuse Family history: hypertension Medications and Allergies Allergies Allergy/AdvReac Type Severity Reaction Status Date / Time morphine AdvReac Vomiting Verified 01/19/21 16:01 Home Medications Medication Instructions Recorded Confirmed Last Taken Type Ibuprofen [Motrin 400 MG tab] 600 mg PO TID PRN #20 tablet 01/03/19 01/20/21 Unknown Rx Gabapentin [Neurontin] 600 mg PO QAM 04/24/19 01/20/21 Unknown History Gabapentin [Neurontin] 900 mg PO QHS 04/24/19 01/20/21 Unknown History Hydroxyzine HCl [hydrOXYzine] 30 mg PO TID PRN 04/24/19 01/20/21 Unknown History Sertraline [Zoloft] 100 mg PO QDAY 04/24/19 01/20/21 04/24/19 10:00 History traZODone [Desyrel] 100 mg PO QHS 04/24/19 01/20/21 Unknown History Active Meds: Active Medications Acetaminophen (Acetaminophen 325 Mg Tab) 650 mg PO Q4H PRN PRN Reason: Pain MILD(1-3)/Fever >100.5/PONCE Last Admin: 01/21/21 09:39 Dose: 650 mg Documented by: Albuterol (Albuterol 2.5 Mg/3 Ml Nebu) 2.5 mg IH Q4HRT PRN PRN Reason: Shortness Of Breath Folic Acid (Folic Acid 1 Mg Tab) 1 mg PO QDAY [facility] Last Admin: 01/21/21 09:39 Dose: 1 mg Documented by: Gabapentin (Gabapentin 300 Mg Cap) 900 mg PO QHS [facility] Last Admin: 01/20/21 21:49 Dose: 900 mg Documented by: Gabapentin (Gabapentin 300 Mg Cap) 600 mg PO QAM [facility] Last Admin: 01/21/21 09:39 Dose: 600 mg Documented by: Hydroxyzine HCl (Hydroxyzine Hcl 10 Mg Tab) 30 mg PO TID PRN PRN Reason: Anxiety Lactulose (Lactulose 20 Gm/30 Ml Oral Liqd) 20 gm PO Q6H PRN PRN Reason: Constipation Lorazepam (Lorazepam 2 Mg/Ml Vial) 2 mg IV Q1HR PRN PRN Reason: Vel 8- Last Admin: 01/19/21 21:45 Dose: 2 mg Documented by: Multivitamins (Multivitamins ,Therapeutic Tab) 1 each PO QDAY [facility] Last Admin: 01/21/21 09:40 Dose: 1 each Documented by: Ondansetron HCl (Ondansetron 4 Mg/2 Ml Inj) 4 mg IV Q8H PRN PRN Reason: Nausea And Vomiting Pantoprazole Sodium (Pantoprazole 40 Mg Inj) 40 mg IV Q12H [facility] Last Admin: 01/21/21 04:03 Dose: 40 mg Documented by: Sertraline HCl (Sertraline 100 Mg Tab) 100 mg PO QDAY [facility] Last Admin: 01/21/21 09:40 Dose: 100 mg Documented by: Sodium Chloride (Sodium Chloride 0.9% 10 Ml Flush Syringe) 10 ml IV BID [facility] Last Admin: 01/21/21 09:38 Dose: 10 ml Documented by: Sodium Chloride (Sodium Chloride 0.9% 10 Ml Flush Syringe) 10 ml IV PRN PRN PRN Reason: LINE FLUSH Trazodone HCl (Trazodone 100 Mg Tab) 100 mg PO QHS [facility] Last Admin: 01/20/21 21:49 Dose: 100 mg Documented by: Physical Examination - Vital Signs Vital Signs: Vital Signs Temp Resp BP 99.2 F 18 111/60 01/19/21 13:51 01/19/21 13:51 01/19/21 13:51 - Physical Exam Narrative exam: The patient is alert , moves all 4 extremity but weakness noted in the right LE ,SLT test is negative . Results - Laboratory Findings CBC and BMP: 01/21/21 05:53 01/21/21 05:53 Abnormal Lab Findings: Abnormal Labs 01/19/21 01/19/21 01/19/21 14:35 14:35 15:25 WBC 15.8 H RBC 2.39 L Hgb 8.0 L Hct 23.3 L MCV 98 H MCH 33 H MCHC Plt Count [place] % (Auto) 8.0 H Pender # (Auto) 1.3 H Seg Neutrophils # 11.0 H PT 15.6 H INR 1.19 H Sodium 136 L BUN 26 H Glucose Total Protein Albumin Crossmatch 01/20/21 01/20/21 01/20/21 07:38 07:38 09:42 WBC RBC 1.79 L Hgb 6.3 L 6.5 L Hct 17.6 L* 18.0 L* MCV 99 H MCH 35 H MCHC 36 H Plt Count 105 L Pender % (Auto) 9.2 H Pender # (Auto) Seg Neutrophils # PT INR Sodium BUN Glucose 116 H Total Protein 5.9 L Albumin 3.5 L Crossmatch 01/20/21 01/20/21 01/21/21 09:42 22:51 05:53 WBC RBC 2.13 L Hgb 7.4 L 7.3 L Hct 21.2 L 20.7 L MCV 97 H MCH 34 H MCHC 35 H Plt Count 95 L Pender % (Auto) Pender # (Auto) Seg Neutrophils # PT INR Sodium BUN Glucose Total Protein Albumin Crossmatch See Detail Assessment and Plan 1. Right Lower Extremity Weakness - Rule out Lumbar Radiculopathy . 2. MRI Lumbar Spine ordered if normal will recommend MRI Cervical Spine . 3. Follow up with Results. 4. If any questions please call Dr Nanci Simms
--- NOTE | 2021-01-21 11:32 | Progress Note ---
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 Pt reports"I have been vomiting, and i have diarrhea and my stool is dark". Patient states that he has experienced nausea as well as mult iple episodes of vomiting combined with multiple dark stools, as well as large bloody bowel movement. Pt transported to ED via private vehicle. Pt seen and evaluated in ED and found to have guaiac positive stool which is consistent with lower GI bleed. GI team consulted. Patient placed in observation status and admitted to medical floor. Patient initiated on GI bleed protocol. Patient denies fever, chills, chest pain, palpitation, productive cough, skin rash, recent ill contacts, known exposure to COVID-19. Prior admission on 12/30/2018 reviewed. All medication listed at time of admission has been reconciled. 01/20: Patient seems unsure about a lot of information. We will continue CIWA protocol as recommended. We will also obtain GI evaluation as hemoglobin drop ped this morning. Prior noted renal function abnormalities improved. Results here did not indicate any abnormal renal function. We will also try to establish a communication with family as patient does have a history of seizure disorder possible cirrhosis chronic pain syndrome to obtain full thorough medical evaluation and history of this patient. Will transfuse 1 unit packed red blood cell while awaiting GI work-up. 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 But I am sure we will get this information this time progress 01/21: Patient underwent endoscopy with findings of gastric ulcers. It appears that the bleeding had stopped and hemoglobin is stable at this time. Per GI will continue PPI twice a day and will follow up with GI outpatient in 2 to 3 weeks for repeat upper endoscopy in 6 to 8 weeks also. Have discussed with the family patient has some limitations as there is no insurance. Nevertheless we will continue current management we will also obtain neurology evaluation and PT OT evaluation considering a right foot drop which is chronic. Although family reports that they have not been able to follow with neurology since this was diagnosed but have been going to outpatient PT. Father tells me that the patient has not had any alcohol since last December 2019. No further melanotic stools are noted will monitor to ensure hemoglobin remained stable in a.m. anticipate discharge in a.m. On outpatient follow-up results of H. pylori testing will also be discussed. Continue fall precaution EGD 01/20 FINDINGS: * No gross lesions in the entire examined duodenum * Multiple gastric ulcers in the gastric antrum and incisura ranging in size from less than 1 mm to the largest one being 4 mm in the prepyloric antrum. All clean based with no active bleeding. Biopsies were taken to rule out H. Pylori infection. A total of 5 biopsies were taken, 2 from the antrum, 1 from the incisura, 2 from the body. * Z-line regular at 40 cm from incisors * Remainder of exam unremarkable (1) GI bleed Current Visit: Yes Status: Acute Qualifiers: GI bleed type/associated pathology: unspecified gastrointestinal hemorrhage type Qualified Code(s): K92.2 - Gastrointestinal hemorrhage, unspecified Plan to address problem: GI team consulted in ED, patient is pending endoscopic evaluation, PPI therapy, supportive care, CBC, repeat CBC in a.m. (2) Alcohol dependence Current Visit: Yes Status: Acute Plan to address problem: CIWA protocol, banana bag, thiamine, folic acid, multivitamin daily. (3) Acute blood loss anemia Current Visit: Yes Status: Acute Qualifiers: Anemia type: iron deficiency Plan to address problem: Hemoglobin stable, no transfusion at this time. (4) right-sided foot drop Chronic per the patient PT OT evaluation and treat Fall precaution (5) chronic pain syndrome (6) gastric ulcers (7) DVT prophylaxis Current Visit: Yes Status: Acute Plan to address problem: SCD to bilateral lower extremities while in bed, hold anticoagulation for now due to active GI bleed History Interval history: Patient seen and examined, continues to report generalized body pain and chronic right foot drop for which he is on Rehab. Hospitalist Physical - Physical exam Narrative exam: General appearance: Present: no distress. pale appearing - EENT Eyes: Present: PERRL ENT: hearing intact, clear oral mucosa - Neck Neck: Present: supple, normal ROM - Respiratory Respiratory effort: normal Respiratory: bilateral: CTA - Cardiovascular Heart Sounds: Present: S1 & S2. Absent: rub, click - Extremities Extremities: pulses symmetrical, No edema Peripheral Pulses: within normal limits - Abdominal General gastrointestinal: Present: soft, non-tender, non-distended, normal bowel sounds Male genitourinary: Present: normal - Integumentary Integumentary: Present: clear, warm, dry - Musculoskeletal Musculoskeletal: gait abnormal, right foot drop - Psychiatric Psychiatric: appropriate mood/affect, intact judgment & insight - Neurologic Neurologic: CNII-XII intact, moves all extremities Except noted right foot drop Poor comprehension of medical condition Obese - Constitutional Vitals: Temp Pulse Resp BP Pulse Ox 98.8 F 77 18 96/44 96 01/21/21 04:31 01/21/21 04:31 01/21/21 04:31 01/21/21 04:31 01/21/21 09:07 General appearance: Present: mild distress Results - Labs CBC & Chem 7: 01/21/21 05:53 01/21/21 05:53 Labs: Laboratory Last Values WBC 4.9 K/mm3 (4.5-11.0) 01/21/21 05:53 RBC 2.13 M/mm3 (3.65-5.03) L 01/21/21 05:53 Hgb 7.3 gm/dl (11.8-15.2) L 01/21/21 05:53 Hct 20.7 % (35.5-45.6) L 01/21/21 05:53 MCV 97 fl (84-94) H 01/21/21 05:53 MCH 34 pg (28-32) H 01/21/21 05:53 MCHC 35 % (32-34) H 01/21/21 05:53 RDW 15.1 % (13.2-15.2) 01/21/21 05:53 Plt Count 95 K/mm3 (140-440) L 01/21/21 05:53 Lymph % (Auto) 24.6 % (13.4-35.0) 01/20/21 07:38 [place] % (Auto) 9.2 % (0.0-7.3) H 01/20/21 07:38 Eos % (Auto) 2.3 % (0.0-4.3) 01/20/21 07:38 Baso % (Auto) 0.3 % (0.0-1.8) 01/20/21 07:38 Lymph # (Auto) 1.5 K/mm3 (1.2-5.4) 01/20/21 07:38 [place] # (Auto) 0.6 K/mm3 (0.0-0.8) 01/20/21 07:38 Eos # (Auto) 0.1 K/mm3 (0.0-0.4) 01/20/21 07:38 Baso # (Auto) 0.0 K/mm3 (0.0-0.1) 01/20/21 07:38 Seg Neutrophils % 63.6 % (40.0-70.0) 01/20/21 07:38 Seg Neutrophils # 3.9 K/mm3 (1.8-7.7) 01/20/21 07:38 PT 15.6 Sec. (12.2-14.9) H 01/19/21 15:25 INR 1.19 (0.87-1.13) H 01/19/21 15:25 APTT 31.7 Sec. (24.2-36.6) 01/19/21 15:25 Sodium 139 mmol/L (137-145) 01/21/21 05:53 Potassium 3.9 mmol/L (3.6-5.0) 01/21/21 05:53 Chloride 106.7 mmol/L (98-107) 01/21/21 05:53 Carbon Dioxide 23 mmol/L (22-30) 01/21/21 05:53 Anion Gap 13 mmol/L 01/21/21 05:53 BUN 9 mg/dL (9-20) 01/21/21 05:53 Creatinine 1.0 mg/dL (0.8-1.3) 01/21/21 05:53 Estimated GFR > 60 ml/min 01/21/21 05:53 BUN/Creatinine Ratio 9 % 01/21/21 05:53 Glucose 96 mg/dL (75-100) 01/21/21 05:53 Calcium 8.8 mg/dL (8.4-10.2) 01/21/21 05:53 Total Bilirubin 0.70 mg/dL (0.1-1.2) 01/20/21 07:38 AST 29 units/L (5-40) 01/20/21 07:38 ALT 18 units/L (7-56) 01/20/21 07:38 Alkaline Phosphatase 76 units/L (35-129) 01/20/21 07:38 Ammonia 26.0 umol/L (25-60) 01/19/21 15:29 Total Protein 5.9 g/dL (6.3-8.2) L 01/20/21 07:38 Albumin 3.5 g/dL (3.9-5) L 01/20/21 07:38 Albumin/Globulin Ratio 1.5 % 01/20/21 07:38 Urine Color Yellow (Yellow) 01/19/21 Unknown Urine Turbidity Clear (Clear) 01/19/21 Unknown Urine pH 6.0 (5.0-7.0) 01/19/21 Unknown Ur Specific [place] 1.015 (1.003-1.030) 01/19/21 Unknown Urine Protein <15 mg/dl mg/dL (Negative) 01/19/21 Unknown Urine Glucose (UA) Neg mg/dL (Negative) 01/19/21 Unknown Urine Ketones Neg mg/dL (Negative) 01/19/21 Unknown Urine Blood Neg (Negative) 01/19/21 Unknown Urine Nitrite Neg (Negative) 01/19/21 Unknown Urine Bilirubin Neg (Negative) 01/19/21 Unknown Urine Urobilinogen 4.0 mg/dL (<2.0) 01/19/21 Unknown Ur Leukocyte Esterase Neg (Negative) 01/19/21 Unknown Urine WBC (Auto) 1.0 /HPF (0.0-6.0) 01/19/21 Unknown Urine RBC (Auto) < 1.0 /HPF (0.0-6.0) 01/19/21 Unknown Plasma/Serum Alcohol < 0.01 % (0-0.07) 01/19/21 15:25 Blood Type O POSITIVE 01/20/21 09:42 Antibody Screen Negative 01/20/21 09:42 Crossmatch See Detail 01/20/21 09:42 Guardado/IV: Voiding Method Urinal Active Medications - Current Medications Current Medications: Generic Name Dose Route Start Last Admin Trade Name Freq PRN Reason Stop Dose Admin Acetaminophen 650 mg 01/19/21 18:37 01/21/21 09:39 Acetaminophen 325 Mg Tab PO 650 mg Q4H PRN Administration Pain MILD(1-3)/Fever >100.5/PONCE Albuterol 2.5 mg 01/19/21 18:37 Albuterol 2.5 Mg/3 Ml Nebu IH Q4HRT PRN Shortness Of Breath Folic Acid 1 mg 01/20/21 10:00 01/21/21 09:39 Folic Acid 1 Mg Tab PO 1 mg QDAY MYNOR Administration Gabapentin 900 mg 01/19/21 22:00 01/20/21 21:49 Gabapentin 300 Mg Cap PO 900 mg QHS MYNOR Administration Gabapentin 600 mg 01/20/21 10:00 01/21/21 09:39 Gabapentin 300 Mg Cap PO 600 mg QAM MYNOR Administration Hydroxyzine HCl 30 mg 01/19/21 19:36 Hydroxyzine Hcl 10 Mg Tab PO TID PRN Anxiety Lactulose 20 gm 01/21/21 11:28 Lactulose 20 Gm/30 Ml Oral Liqd PO Q6H PRN Constipation Lorazepam 2 mg 01/19/21 19:20 01/19/21 21:45 Lorazepam 2 Mg/Ml Vial IV 2 mg Q1HR PRN Administration JOSEPH-Gerry 8-15 Multivitamins 1 each 01/20/21 10:00 01/21/21 09:40 Multivitamins ,Therapeutic Tab PO 1 each QDAY MYNOR Administration Ondansetron HCl 4 mg 01/19/21 18:37 Ondansetron 4 Mg/2 Ml Inj IV Q8H PRN Nausea And Vomiting Pantoprazole Sodium 40 mg 01/20/21 04:00 01/21/21 04:03 Pantoprazole 40 Mg Inj IV 40 mg Q12H MYNOR Administration Sertraline HCl 100 mg 01/20/21 10:00 01/21/21 09:40 Sertraline 100 Mg Tab PO 100 mg QDAY MYNOR Administration Sodium Chloride 10 ml 01/19/21 22:00 01/21/21 09:38 Sodium Chloride 0.9% 10 Ml Flush Syringe IV 10 ml BID MYNOR Administration Sodium Chloride 10 ml 01/19/21 18:37 Sodium Chloride 0.9% 10 Ml Flush Syringe IV PRN PRN LINE FLUSH Trazodone HCl 100 mg 01/19/21 22:00 01/20/21 21:49 Trazodone 100 Mg Tab PO 100 mg QHS MYNOR Administration Nutrition/Malnutrition Assess - Dietary Evaluation Nutrition/Malnutrition Findings: Nutrition Notes Start: 01/20/21 14:44 Freq: Status: Active Protocol: Document 01/20/21 14:45 JOHN (Rec: 01/20/21 14:52 JOHN [id number]) Nutrition Notes 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 Pt reports decreased activity due to chronic foot pain. Pt had N/V/ D yesterday. Pt NPO for procedure. Pt states he is hungry and would like to eat. 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 No Is Patient Ambulatory and/or Out of Bed No REE-([facility]-confined to bed) 2462.376 Kcal/Kg value to use for calculation 18 Approximate Energy Requirements Using 2016 kcal/Kg Calculation Used for Recommendations Kcal/kg Additional Notes Protein: (0.8-1g/kg AdjBW: 92kg) 74-92g Fluid: 1 ml/kcal Nutrition Intervention Change Diet Order: Advance as able Goal #1 Diet advancement Follow-Up By: 01/24/21 Additional Comments FU for intakes and need for ONS
[2021-01-21] MEDS: LORazepam 2 MG/ML VIAL IV PRN (13:56)
--- NOTE | 2021-01-21 15:56 | Magnetic Resonance Report ---
MR lumbar spine wo con INDICATION / CLINICAL INFORMATION: 35 years Male; right leg weakness. TECHNIQUE: Multisequence, multiplanar images of the lumbar spine were obtained. COMPARISON: None available. FINDINGS: ALIGNMENT: There is no significant spondylolisthesis or scoliosis of the lumbar spine. VERTEBRAE:Grossly normal marrow signal and vertebral body height for age. VISUALIZED SPINAL CORD: The motion degrades the image quality. However, the distal spinal cord demons trate appropriate signal intensity and terminates at L1. [id number] ANALYSIS: L1-2: No significant abnormality. L2-3: No significant abnormality. L3-4: No significant abnormality. L4-5: There is a broad-based disc bulge and annular tear which slightly flattens the ventral thecal s ac at. There is minimal foraminal narrowing bilaterally. L5-S1: There is a broad-based central disc bulge without significant central spinal stenosis or mass effect at. Is again minimal foraminal narrowing. PARASPINAL SOFT TISSUES: No significant abnormality. ADDITIONAL FINDINGS: No epidural collections are identified. IMPRESSION: 1. There are degenerative the changes with disc bulges at L4-5 and L5-S1 as detailed above. Signer Name: Maynor Domínguez MD Signed: 01/21/2021 3:52 PM Workstation Name: [id number]
[2021-01-21] MEDS: traZODone 100 MG TAB PO SCH (22:11)
[2021-01-21] MEDS: traMADol 50 MG TAB PO PRN (23:19)
[2021-01-22] MEDS: PANTOPRAZOLE 40 MG INJ IV SCH (03:37)
[2021-01-22 06:24] LABS: Hematocrit 20.2 % (35.5-45.6); Hemoglobin 7.1 gm/dl (11.8-15.2); Mean Corpuscular HGB Conc 35 % (32-34); Mean Corpuscular Volume 98 fl (84-94); Red Blood Count 2.05 M/mm3 (3.65-5.03); Red Cell Distribution Width 15.6 % (13.2-15.2)
[2021-01-22 06:28] LABS: Platelet Count 87 K/mm3 (140-440)
[2021-01-22] MEDS: traMADol 50 MG TAB PO PRN ×2 (06:40→18:26)
[2021-01-22] MEDS: LORazepam 2 MG/ML VIAL IV PRN ×2 (09:43→16:10)
[2021-01-22] MEDS: MULTIVITAMINS ,THERAPEUTIC TAB PO SCH (09:43)
[2021-01-22] MEDS: FOLIC ACID 1 MG TAB PO SCH (09:44)
[2021-01-22] MEDS: GABAPENTIN 300 MG CAP PO SCH (09:44)
[2021-01-22] MEDS: SERTRALINE 100 MG TAB PO SCH (10:00)
[2021-01-22] MEDS ORDERED: SODIUM CHLORIDE 0.9% 500 ML 500 ML IV ONE (13:00)
--- NOTE | 2021-01-22 13:39 | Discharge Summary ---
Providers - Providers Date of Admission: 01/19/21 18:37 Attending physician: RYAN GUEVARA MD 01/19/21 19:10 Consult to Physician [CONS] Urgent Comment: Consulting Provider: LISETTE MCLAUGHLIN Physician Instructions: Reason For Exam: GI bleed 01/20/21 12:28 Occupational Therapy Evaluate and Treat [CONS] Routine Comment: Reason For Exam: Debility Physical Therapy Evaluation and Treat [CONS] Routine Comment: Reason For Exam: Debility with foot drop 01/21/21 07:12 Consult to Physician [CONS] Routine Comment: Consulting Provider: PATRICE PINEDA Physician Instructions: Reason For Exam: right foot drop Primary care physician: VARNISH COOKER Hospitalization Reason for admission: Abnormal Condition: Stable Hospital course: 35 YO Male with ETOH Dependence, Opioid Dependence, ETOH Liver Disease complicated by Cirrhosis, Seizure Disorder, Chronic Pain Syndrome presents to ED for evaluation. Pt reports"I have been vomiting, and i have diarrhea and my stool is dark". Patient states that he has experienced nausea as well as multiple episodes of vomiting combined with multiple dark stools, as well as large bloody bowel movement. Pt transported to ED via private vehicle. Pt seen and evaluated in ED and found to have guaiac positive stool which is consistent with lower GI bleed. GI team consulted. Patient placed in observation status and admitted to medical floor. Patient initiated on GI bleed protocol. Patient denies fever, chills, chest pain, palpitation, productive cough, skin rash, recent ill contacts, known exposure to COVID-19. Prior admission on 12/30/2018 reviewed. All medication listed at time of admission has been reconciled. 01/20: Patient seems unsure about a lot of information. We will continue CIWA protocol as recommended. We will also obtain GI evaluation as hemoglobin dropped this morning. Prior noted renal function abnormalities improved. Results here did not indicate any abnormal renal function. We will also try to establish a communication with family as patient does have a history of seizure disorder possible cirrhosis chronic pain syndrome to obtain full thorough medical evaluation and history of this patient. Will transfuse 1 unit packed red blood cell while awaiting GI work-up. Not quite clear why the patient went to the [facility] office in the first place. But I am sure we will get this information this time progress 01/21: Patient underwent endoscopy with findings of gastric ulcers. It appears that the bleeding had stopped and hemoglobin is stable at this time. Per GI will continue PPI twice a day and will follow up with GI outpatient in 2 to 3 weeks for repeat upper endoscopy in 6 to 8 weeks also. Have discussed with the family patient has some limitations as there is no insurance. Nevertheless we will continue current management we will also obtain neurology evaluation and PT OT evaluation considering a right foot drop which is chronic. Although family reports that they have not been able to follow with neurology since this was diagnosed but have been going to outpatient PT. Father tells me that the patient has not had any alcohol since last December 2019. No further melanotic stools are noted will monitor to ensure hemoglobin remained stable in a.m. anticipate discharge in a.m. On outpatient follow-up results of H. pylori testing will also be discussed. Continue fall precaution EGD 01/20 FINDINGS: * No gross lesions in the entire examined duodenum * Multiple gastric ulcers in the gastric antrum and incisura ranging in size from less than 1 mm to the largest one being 4 mm in the prepyloric antrum. All clean based with no active bleeding. Biopsies were taken to rule out H. Pylori infection. A total of 5 biopsies were taken, 2 from the antrum, 1 from the incisura, 2 from the body. 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 Patient will need an outpatient GI follow-up and also neurology follow-up. MRI has been reviewed no acute pathology although some bulging disc was noted. MRI of the cervical spine is ordered anticipate that this will be done prior to the patient being discharged. If not it can be done outpatient. Of call the father detailing the clinical condition at this time. Remarkably LFTs are within normal limits and ammonia level has been normal. It is my opinion that while the patients numbers are showing some improvement, he is unable to care for himself, unable to ambulate secondary to right foot drop. Patient has significant memory impairment. Is in chronic pain secondary to neuropathies. Still has outpatient imaging studies including MRIs that need to be done and needs extensive physical therapy. At this point he is unable to perform any meaningful work due to his severe memory impairment. He is restarted on some vitamins to assist with this according to the family the patient has not drank alcohol in the last year. This has also been reflected in his LFTs showing some remarkable improvement. It is my opinion that the patient has some form of early onset dementia and until full evaluation is done needs to be on some sort of disability. (1) GI bleed Current Visit: Yes Status: Acute Qualifiers: GI bleed type/associated pathology: unspecified gastrointestinal hemorrhage type Qualified Code(s): K92.2 - Gastrointestinal hemorrhage, unspecified Plan to address problem: GI team consulted in ED, patient is pending endoscopic evaluation, PPI therapy, supportive care, CBC, repeat CBC in a.m. (2) Alcohol dependence Current Visit: Yes Status: Acute Plan to address problem: CIWA protocol, banana bag, thiamine, folic acid, multivitamin daily. (3) Acute blood loss anemia Current Visit: Yes Status: Acute Qualifiers: Anemia type: iron deficiency Plan to address problem: Hemoglobin stable, no transfusion at this time. (4) right-sided foot drop Chronic per the patient PT OT evaluation and treat Fall precaution (5) chronic pain syndrome (6) gastric ulcers (7) Chronic Encephalopathy with significant memory imparment Disposition: DC-01 TO HOME OR SELFCARE Final Discharge Diagnosis (Prints w/discharge instructions): Symptomatic anemia Time spent for discharge: 35 mins Core Measure Documentation - Palliative Care Palliative Care/ Comfort Measures: Not Applicable - Core Measures Any of the following diagnoses?: none Exam - Physical Exam Narrative exam: General appearance: Present: no distress. pale appearing - EENT Eyes: Present: PERRL ENT: hearing intact, clear oral mucosa - Neck Neck: Present: supple, normal ROM - Respiratory Respiratory effort: normal Respiratory: bilateral: CTA - Cardiovascular Heart Sounds: Present: S1 & S2. Absent: rub, click - Extremities Extremities: pulses symmetrical, No edema Peripheral Pulses: within normal limits - Abdominal General gastrointestinal: Present: soft, non-tender, non-distended, normal bowel sounds Male genitourinary: Present: normal - Integumentary Integumentary: Present: clear, warm, dry - Musculoskeletal Musculoskeletal: gait abnormal, right foot drop - Psychiatric Psychiatric: appropriate mood/affect, intact judgment & insight - Neurologic Neurologic: CNII-XII intact, moves all extremities. Severe memory impairment unable to recall words. Except noted right foot drop Poor comprehension of medical condition Obese - Constitutional Vitals: Temp Pulse Resp BP Pulse Ox 98.1 F 78 17 102/52 94 01/22/21 05:35 01/22/21 05:35 01/22/21 06:40 01/22/21 05:35 01/22/21 05:35 Plan Activity: advance as tolerated, fall precautions Diet: regular Special Instructions: record daily weights, record daily BP diary Plan of Treatment: 1. Please follow with GI AND NEUROLOGY OUTPATIENT. Follow up with: PRIMARY CAREMD [Primary Care Provider] - 3-5 Days [facility] [Provider Group] - 7 Days [facility] [Outside] - 7 Days [facility] [Outside] - 7 Days CHEVY DANG MD [Staff Physician] - 7 Days Prescriptions: Lactulose [Cephulac] 20 gm PO Q6H PRN #30 oral.liqd PRN Reason: Constipation Folic Acid [Folvite] 1 mg PO QDAY #30 tablet Multivitamin Tab [Multiple Vitamin TAB (Theragran)] 1 each PO QDAY #60 tablet Pantoprazole [Protonix TAB] 40 mg PO Q12H #60 tablet
[2021-01-22 14:23] VITALS: BP 107/56
[2021-01-22] MEDS ORDERED: PANTOPRAZOLE 40 MG TAB PO SCH (18:00)
--- NOTE | 2021-01-22 18:36 | Magnetic Resonance Report ---
MR cervical spine wo/w con INDICATION / CLINICAL INFORMATION: 35 years Male; right foot drop. TECHNIQUE: Multisequence, multiplanar images of the cervical spine were obtained. COMPARISON: None available. FINDINGS: CRANIOCERVICAL JUNCTION:No significant abnormality. ALIGNMENT: There is no significant spondylolisthesis of the cervical spine. VERTEBRAE:There is mild deformity of the superior and inferior endplates of T1. However, there is no significant edema or bony retropulsion involving the visualized vertebral bodies. VISUALIZED SPINAL CORD: The motion degrades the image quality despite repeat imaging. However, the ce rvical spinal cord grossly demonstrate appropriate morphology and signal intensity on the combination of sequences. [id number] ANALYSIS: C2-3: No significant abnormality. C3-4: There is no disc protrusion or significant central spinal stenosis. There appears be mild left neural foraminal narrowing. C4-5: No significant abnormality. C5-6: No significant abnormality. C6-7: There is a minimal central disc bulge without ossific and spinal stenosis. The left facet joint hypertrophy contributes to moderate left foraminal narrowing. Mild narrowing is seen on the right. C7-T1: There is no disc protrusion or central stenosis. Is mild left foraminal narrowing. PARASPINAL SOFT TISSUES: No significant abnormality. ADDITIONAL FINDINGS: No epidural collections or intradural enhancing lesions are identified. IMPRESSION: 1. There is no disc protrusion or significant central spinal stenosis involving cervical spine at. Th ere is moderate left neural foraminal narrowing at C6-7 and mild narrowing at C3-4. Signer Name: Maynor Domínguez MD Signed: 01/22/2021 6:31 PM Workstation Name: [id number]
[2021-01-26 16:36] LABS: Heparin-Induced Platelet Antib Negative (Negative); Unfractionated Heparin Negative (Negative)
== END 2021-01-22 19:30 | disposition home or self-care (01) ==
LOC: ED 13:22 → 3A 18:37
PROVIDERS: ADMIT Internal Medicine; ATTEND Internal Medicine
DX: K92.2 Gastrointestinal hemorrhage, unspecified (principal); D50.9 Iron deficiency anemia, unspecified; F10.129 Alcohol abuse with intoxication, unspecified; R56.9 Unspecified convulsions; F11.20 Opioid dependence, uncomplicated; G89.29 Other chronic pain; G93.40 Encephalopathy, unspecified; M54.9 Dorsalgia, unspecified; M21.371 Foot drop, right foot; Z79.899 Other long term (current) drug therapy; Z98.890 Other specified postprocedural states; Z87.891 Personal history of nicotine dependence; Z87.19 Personal history of other diseases of the digestive system
CPT/HCPCS: 36415; 36430; 43239; 72148; 72156; 74176; 80048; 80053; 81001; 82140; 85014; 85018; 85025; 85027; 85610; 85730; 86022; 86850; 86900; 86901; 86920; 88305; 88342; 96361; 96365; 96366; 96375; 96376; 97161; 97165; 99284; A9575; C9113; G0378; J2060; J2405; J2704; J3010; J3411; J7030; J7040; P9016; 80320; G0480